=== PATIENT | female | born 1965 | race Caucasian/White ===

== ENCOUNTER 2018-01-30 10:09 | Day surgery (SDC) | payer MEDICAID, SELFPAY ==
[2018-01-30] VITALS (8 sets, daily range): BP systolic 109–160; BP diastolic 55–93; PULSE 65–107; RESP 14–16; TEMP 36.1–36.9; O2SAT 98–100; BMI 26.2
--- NOTE | 2018-01-30 10:14 | EKG12_ITS ---
Test Reason : PREOP Blood Pressure : / mmHG Vent. Rate : 071 BPM Atrial Rate : 071 BPM P-R Int : 112 ms QRS Dur : 086 ms QT Int : 390 ms P-R-T Axes : 063 041 049 degrees QTc Int : 423 ms Normal sinus rhythm Normal ECG When compared with ECG of 12-OCT-2015 05:25, No significant change was found Confirmed by ATMIR FRENCH, JUSTIN ([id number]), film editor supervisor MARIA ISABEL SHAFFER ([id number]) on 01/31/2018 2:11:31 PM Referred By: Gen Blue Confirmed By:JUSTIN GARNETT MD
[2018-01-30 10:28] LABS: Internal QC Validated? YES +Cl - CLEAR BKGD
[2018-01-30 10:32] LABS: Pregnancy, Urine Negative Negative
[2018-01-30] MEDS: Cefazolin 2 GM in 0.9% Normal Saline 100 ML IV (12:07)
--- NOTE | 2018-01-30 12:20 | GALL_PTH ---
PATIENT: ISSAC NEWELL LOC: [facility] – [place] U#:[id number] AGE/SX: 52/F ROOM: RE01/30/[address]: Dr. Gen Blue MD : 1965 BED: DIS: 01/30/2018 SPEC #: [id number] RECD: 01/30/18 14:18 STATUS: MILLI ARACELI #: [id number] MIN: 01/30/18 12:[address]: Gen Blue DEPT: SURGICAL PATHOLOGY RECD BY: Mitchel Dubois ENTERED: 01/31/18 08:26 SP TYPE: TAPAN MATTHEW DR: Dr. Adelfo Fortune MD Tissues: Gallbladder, NOS Procedures: Surgery Specimen Level III HEADER OPERATION: Laparoscopic cholecystectomy PRE-OP DIAGNOSIS: Gallbladder sludge TISSUE SUBMITTED: Gallbladder MICROSCOPIC DIAGNOSIS Gallbladder: Mild chronic cholecystitis and cholesterolosis. No stones are identified in the container or in the gallbladder. SJ:melissa 02/01/18 MICROSCOPIC DESCRIPTION Slides are reviewed. GROSS DESCRIPTION Received is one container labeled with the patient's name and designated gallbladder. The specimen consists of a gallbladder measuring 8 cm in length and up to 3.5 cm in diameter. The external surface is pink-garland, smooth and glistening for the most part. Focally it is granular, hemorrhagic and contains cautery artifact. The gallbladder contains green-yellow mucoid bile. No stones are identified in the container or in the gallbladder. The mucosa also shows several yellowish streaks consistent with cholesterolosis. The mucosa is bile-stained and without any mass lesions. The gallbladder wall measures up to 0.3 cm in thickness. Systems Applications [employer] Lead sections from the gallbladder and the cystic duct are submitted in one cassette. / SJ:melissa 01/31/18 TC:3 CPT: 65092
[2018-01-30] MEDS: Bupivacaine Mpf 0.5% 30 ML VIAL (12:40)
--- NOTE | 2018-01-30 12:48 | PCM.OPRPT ---
Problem List (1) Gallbladder sludge Status: Acute (2) Nausea Status: Acute Report of Operation Date of Procedure: 01/30/18 Pre-Operative Diagnosis: Gallbladder sludge. Nausea Post-Operative Diagnosis: Same Surgery/Procedure Performed:: Laparoscopic cholecystectomy Type of Anesthesia:: General Anesthesiologist: Marco Fairchild Specimen's removed: gb Description of Procedure: Patient was brought in the operating room. Placed in the supine position. Under excellent general endotracheal sedation the abdomen was sterilely prepped and draped in usual fashion. Was initially going to make an incision above the umbilicus and try to explore the area to see if there is a hernia however the patient was so significantly short wasted it would have crowded all of my trochars and I decided against doing this I injected local infraumbilically dissected down graft the fascia with Jack place a varies needle inside the abdomen and insufflated the abdomen to 15 torr. A 10/12 trocar was placed without difficulty. A subxiphoid #5 trocar was placed and then I palpated above the umbilical area I felt no defect here with the abdomen insufflated to 15 torr. Inferior to the #5 trocar placed another #5 trocar. Laterally a #5 trocar was placed. All these under direct visualization without injury to underlying structures fundus of the gallbladder was grasped and retracted in cephalad direction infundibulum was grasped and retracted laterally. I dissected out the cystic duct. Place hemoclips proximally and distally on the duct and ligated the duct. Identified the cystic artery placed hemoclips proximally distally on the artery and ligated the artery. I deliver the gallbladder from the gallbladder bed with use of electrocautery there was no spillage of bile. Placed a specimen specimen bag and delivered through the umbilical port without difficulty. Liver bed was very raw I spent a lot of time using electrocautery to achieve good hemostasis. I placed some Fish in the bed of the liver it remained nice and white and I saw no wisp of red coming through the white Fish. I inspected the abdominal wall from the inside I saw no signs of any hernia. Trochars removed under direct visualization good hemostasis was noted close the fascia the umbilical port with a [id number] stitch of 0 Vicryl skin incisions were closed with septicum stitches of 4-0 Monocryl Steri-Strips applied sterile dressings were applied and the patient tolerated the procedure well. - Admit VTE Documentation VTE Present on Admission: No VTE Mechan Device Prophylaxis: SCD's VTE Pharm Prophylaxis ordered?: No Reason prophylaxis not ordered:: Treatment Not Indicated
--- NOTE | 2018-01-30 12:51 | PCM.DC.GB ---
Discharge Diet: Light diet - advance as tolerated Discharge Activity: May Not Drive - for 2-3 days or while taking narcotic pain medications., - - Do not drive, work heavy equipment or sign legal documents for 24 hours. May shower in (days): 1 - with the bandage in place. Additional Activity Instructions:: Pain medication may cause nausea. You should typically eat light foods as you take your pain medications. Pain medication may also cause constipation. If this is a problem for you, please discuss with your doctor. Call your doctor if your incision/area has: Continuous Slow Oozing, Sudden Increased Bleeding, Increased Pain/ Swelling, Increased Redness, Foul Smelling Discharge Call your doctor if you observe: Fever of 101 or Higher Suture Line Care: Avoid Pulling/Pushing, Avoid Pinching/Bending Additional Dressing/Incision Instructions:: Leave operative bandaids on for 2 days. When you remove dressing, leave Steri-Strips on until your follow-up appointment, or until the Steri-Strips fall off on their own. Allergies/Adverse Reactions: Allergies aspirin Allergy (Verified 01/16/18 09:56) Anaphylaxis Sulfa (Sulfonamide Antibiotics) Allergy (Verified 01/16/18 09:56) Anaphylaxis DEXPAK Allergy (Uncoded 01/16/18 09:56) Hives Medications to take at Discharge Albuterol Aerosols [Ventolin Aerosols] 2.5 mg INHALATION Q4H PRN PRN 01/19/14 Albuterol Inhaler [Ventolin Hfa] 2 puff INHALATION Q4H PRN PRN 01/19/14 Fluticasone 220 Mcg [Flovent 220 Mcg] 2 puff INHALATION BID 01/19/14 Montelukast [Singulair] 10 mg PO DAILY 04/28/16 Budesonide Aerosol [Pulmicort Respules] 1 applicatio NASAL BID 08/10/16 Levocetirizine Dihydrochloride [Xyzal] 5 mg PO BID 01/18/18 Norethindrone-E.estradiol-Iron [Junel Fe 1 mg-20 Mcg Tablet] 1 each PO DAILY 01/18/18 Oxycodone HCl/Acetaminophen [Percocet 5/325] 1 - 2 tab PO Q4H PRN PRN 5 Days #30 tab 01/30/18 The following prescriptions were given: Oxycodone HCl/Acetaminophen [Percocet 5/325] 1 - 2 tab PO Q4H PRN PRN 5 Days #30 tab PRN Reason: Pain Primary Care Physician: Adelfo Fortune [Primary Care Provider] - Test Results: Test results from this visit will be discussed in further detail at your follow-up appointment, if applicable. Please Follow Up With: Gen Blue MD - Please call [phone] to schedule an appointment. When: 7 days after your surgery.
== END 2018-01-30 15:50 | disposition home or self-care (01) ==
LOC: SDC 10:10 → AC 10:11
PROVIDERS: Anesthesiology; Family Provider Family Medicine; PCP Family Medicine; Visit Provider Surgery
PROC: (CPT 47610; principal; 2018-01-30 12:00)
DX: K81.1 Chronic cholecystitis (principal); R11.0 Nausea; M19.90 Unspecified osteoarthritis, unspecified site; J45.909 Unspecified asthma, uncomplicated; Z79.51 Long term (current) use of inhaled steroids; Z79.899 Other long term (current) drug therapy
CPT/HCPCS: 00790; 47562; 81025; 88304; 93005; J7120; J2405

== ENCOUNTER → 2018-02-28 15:57 | Outpatient (CLI) | payer MEDICAID, SELFPAY ==
[2018-03-08 13:54] LABS: HPV HC, High Risk Negative (Negative)
== END ==
PROVIDERS: Visit Provider Obstetrics & Gynecology
DX: Z12.72 Encounter for screening for malignant neoplasm of vagina (principal)
CPT/HCPCS: 87624; 88175; G0145

== ENCOUNTER 2018-03-14 09:41 | Observation (INO) | payer MEDICAID, SELFPAY ==
[2018-03-08 16:11] LABS: Hematocrit 40.5 % (37-47); Hemoglobin 13.4 g/dl (12.0-15.0); Mean Corp Hgb Conc 33.1 g/gl (32-36); Mean Corpuscular Hgb 30.7 pg (27.0-32.0); Mean Corpuscular Volume 92.7 fL (81-99); Mean Platelet Vol. 10.3 fl (6.2-12.0); Platelet Count 304 K/mm3 (150-450); RBC Distribution Width CV 13.4 % (11.6-14.6); RBC Distribution Width SD 44.2 fl (35.1-43.9); Red Blood Count 4.37 M/mm3 (4.2-5.4); White Blood Count 7.1 K/mm3 (4.4-11.0)
[2018-03-08 16:15] LABS: Scan Indicated on CBC? Y/N NO
[2018-03-08 16:25] LABS: Prothrombin Time (Protime)PT. 13.5 SECONDS (11.7-14.9)
[2018-03-08 16:26] LABS: Partial Thromboplast Time 30.9 Seconds (24.1-36.2)
[2018-03-08 16:34] LABS: Pregnancy, Serum, hCG Quali. NEGATIVE Negative (0-9 Nonpreg)
[2018-03-14] VITALS (13 sets, daily range): BP systolic 103–131; BP diastolic 51–77; PULSE 65–98; RESP 16; TEMP 36.5–37.6; O2SAT 92–100; BMI 27.2
[2018-03-14 07:42] LABS: Internal QC Validated? YES +Cl - CLEAR BKGD; Pregnancy, Urine Negative Negative
--- NOTE | 2018-03-14 09:20 | HYST_PTH ---
PATIENT: ISSAC NEWELL LOC: [facility] U#:[id number] AGE/SX: 52/F [place] [facility] [place] RE[place]/14/[address]: Dr. Tyler Mccarty MD : 1965 BED: 1 DIS: 03/15/2018 SPEC #: [id number] RECD: 03/14/18 16:15 STATUS: MILLI RERafael #: [id number] MIN: 03/14/18 09:[address]: Tyler Mccarty DEPT: SURGICAL PATHOLOGY RECD BY: Daniel Tomas ENTERED: 03/15/18 11:23 SP TYPE: HYSTERECT OTHR DR: Dr. Adelfo Fortune MD Tissues: Uterus, NOS Procedures: Surgery Specimen Level V HEADER OPERATION: Hysterectomy, lap-assisted vaginal, BSO PRE-OP DIAGNOSIS: Intramural leiomyoma of uterus TISSUE SUBMITTED: Uterus, cervix and bilateral fallopian tubes and ovaries MICROSCOPIC DIAGNOSIS Uterus, cervix, bilateral fallopian tubes and ovaries, vaginal hysterectomy and bilateral salpingo-oophorectomy: Cervix - no pathologic diagnosis. Endometrium - secretory endometrium. Myometrium - intramural and subserosal leiomyomas (largest measuring 5 cm in greatest dimension). - Focal adenomyosis. See comment. Bilateral fallopian tubes - no pathologic diagnosis. Right ovary - no pathologic diagnosis. Left ovary - physiologic hemorrhagic corpus luteum cyst. Focal tubo-ovarian adhesions left fallopian tube and ovary. SJ:melissa 03/16/18 COMMENT One of the subserosal nodule filled with bloody material is consistent with adenomyosis. MICROSCOPIC DESCRIPTION Slides are reviewed. GROSS DESCRIPTION Received in fixative is one container labeled with the patient's name and designated uterus and bilateral fallopian tubes. The specimen consists of a hysterectomy specimen consisting of uterus with cervix and attached bilateral fallopian tubes and ovaries. The uterus with cervix weighs 210 gm and measures 10.5 x 8 x 9 cm. The serosal surface is garland, glistening. A few subserosal nodules are noted. The ectocervical mucosa is unremarkable. The external os is pin point in contour. The endocervical canal measures 3.5 cm in length and the endocervical mucosa is garland, glistening and unremarkable. The triangular endometrial cavity measures 6 cm in length and up to 2 cm in width. The endometrium does not show any mass lesion and it measures 0.1 cm in thickness. Sections of the uterine wall reveal multiple intramural and subserosal nodular masses. The largest mass measures 5 cm in greatest dimension. Sections of these masses reveal garland whorled cut surfaces without areas of hemorrhage, necrosis or cystic degeneration. The uninvolved uterine wall measures up to 3.5 cm in thickness. Sections of one of the smaller subserosal nodular masses reveal the nodule shows cystic cut surface filled with bloody material. The right fallopian tube measures 5 cm in length and 0.7 cm in diameter. The fimbrial end is identified. It is interrupted in the middle consistent with previous tubal occlusion. The fallopian tube in the middle shows a plastic ring consistent with previous tubal occlusion. The adjacent right ovary measures 2.5 x 1.5 x 0.5 cm. Sections reveal hemorrhagic cut surfaces. The left fallopian tube is similar appearance to right and measures 7 cm in length and up to 0.8 cm in diameter. The left ovary measures 3.5 x 2.5 x 1.5 cm. Focal tubo-ovarian adhesions are noted at the fimbrial end. Sections reveal a hemorrhagic corpus luteal cyst measuring 2 cm in greatest dimension. Container Shop Welder sections are submitted in 13 cassettes as follows: 1 - anterior cervix, 2 - posterior cervix, 3 & 4 - anterior uterine wall, 5 & 6 - posterior uterine wall, 7 - largest nodular mass, 8 & 9 - smaller intramural and subserosal nodular masses, 10 - smaller subserosal nodule with cystic change, 11 - right fallopian tube and ovary, 12 - left fallopian tube and ovary, 13 - more sections of left ovary. / MATT:melissa 03/15/18 TC:1 CPT: 34892
--- NOTE | 2018-03-14 09:50 | PCM.DC.VHY ---
Discharge Diet: No Restrictions Discharge Activity: Return to Normal Activity, May Not Drive, May not drive while taking narcotic pain medications., May Shower Return to work on:: 04/16/18 May shower in (days): 0 May resume sexual activity in: 6 weeks Call your doctor if your incision/area has: Sudden Increased Bleeding, Increased Pain/ Swelling, Increased Redness, Foul Smelling Discharge, Swelling at the incision site Call your doctor if you observe: Fever of 101 or Higher, Inability to urinate, Inability to have a bowel movement, Using more than one pad per hour, Shortness of breath, Chest pain, Calf discomfort, Uncontrolled pain Remove Dressing in (days):: 2 Cleanse incision/area with: Soap & Water Allergies/Adverse Reactions: Allergies aspirin Allergy (Verified 03/07/18 14:39) Anaphylaxis Sulfa (Sulfonamide Antibiotics) Allergy (Verified 03/07/18 14:39) Anaphylaxis DEXPAK Allergy (Uncoded 03/07/18 14:39) Hives Medications to take at Discharge Albuterol Aerosols [Ventolin Aerosols] 2.5 mg INHALATION Q4H PRN PRN 01/19/14 Albuterol Inhaler [Ventolin Hfa] 2 puff INHALATION Q4H PRN PRN 01/19/14 Fluticasone 220 Mcg [Flovent 220 Mcg] 2 puff INHALATION BID 01/19/14 Montelukast [Singulair] 10 mg PO DAILY 04/28/16 Budesonide Aerosol [Pulmicort Respules] 1 applicatio NASAL BID 08/10/16 Levocetirizine Dihydrochloride [Xyzal] 5 mg PO BID 01/18/18 Cholecalciferol (Vitamin D3) [Vitamin D3] 2,000 unit PO DAILY 03/07/18 Glucosam/Chondroit/C/Manganese [Cosamin Ds Capsule] 2 each PO DAILY 03/07/18 Multivitamin [Multiple Vitamins] 1 each PO DAILY 03/07/18 Hydrocodone Bitart/Apap 5-325 [[place] 5/325] 1 tab PO Q6H PRN PRN 7 Days #28 tab 03/14/18 The following prescriptions were given: Hydrocodone Bitart/Apap 5-325 [[place] 5/325] 1 tab PO Q6H PRN PRN 7 Days #28 tab PRN Reason: Severe Pain (-02/28) Primary Care Physician: Adelfo Fortune [Primary Care Provider] - Test Results: Test results from this visit will be discussed in further detail at your follow-up appointment, if applicable. Please Follow Up With: Tyler Mccarty MD When: one week Proposed Discharge Date: 03/15/18
--- NOTE | 2018-03-14 09:54 | OP.PCM_ITS ---
Problem List (1) Fibroid uterus Status: Chronic Qualifiers: Uterine leiomyoma location: intramural Qualified Code(s): D25.1 - Intramural leiomyoma of uterus Report of Operation Date of Procedure: 03/14/18 Pre-Operative Diagnosis: Fibroid uterus Surgery/Procedure Performed:: Laparoscopic Assisted Vaginal Hysterectomy, Bilateral Salpingooophorectomy Description of Surgical Findings:: Uterus with multiple fibroids largest posterior measuring about 6 cm. Normal appearing ovaries and fallopian tubes. Minor adhesions of bladder to anterior lower uterine segment and cervix. fire prevention chief: Janine Mena fire prevention chief: Carmen Collins Type of Anesthesia:: General Anesthesiologist: Angelo Blanton Special Medications: none Specimen's removed: Uterus, cervix, left and right ovaries and fallopian tubes Drains: whitney Estimated Blood Loss (mL): 200cc Fluids Replaced: 1100cc LR Description of Procedure: Annia was taken to the OR with IV running. She was given two grams of Cefotetan intravenously prior to the surgery for surgical prophylaxis. She had SCDs in place and operational from the preoperative area, through surgery and into recovery. General anesthesia was induced without complication. She was then prepped and draped in the dorsal lithotomy position. A whitney catheter was then placed. A Zumi uterine manipulator was placed. Attention was then directed to the abdomen. A 5mm vertical incision was made in the lower base of the umbilicus. The underlying subcutaneous tissue was dissected bluntly down to the level of the fascia using a Kellen clamp. The abdominal wall was then elevated and a Veress needle placed through the umbilical defect into the abdomen. The abdomen was then inflated to 15 Torr using CO2 gas. The Veress needle was removed and replaced with a 5mm trocar and sleeve. The trocar was removed and replaced with the laparoscope. Two 5mm laparoscope ports were placed one on the left and one on the right at the level of the umbilicus lateral to the inferior epigastric vessels. A thorough survey of the abdomen and pelvis was performed with findings as above. Attention was then directed to the left adnexa. The left infindibulopelvic ligament was identified, grasped with the Ligasure device cauterized and cut. The mesosalpinx was then serially dissected from the fimbriated end to the cornua of the uterus. The left round ligament was then cauterized and cut close to the attachment at the uterus. The round ligament was then dissected close to the uterus to the level of the cervix. The anterior and posterior leaves were bluntly, the uterine artery identified and cauterized and cut. A bladder flap was created. The paracervical tissue was then dissected close to cervix down to the level of the uterosacral ligament. In a similar fashion the right adnexa and uterine attachments were dissected. Attention was then directed to the vagina. The Zumi was removed and cervix grasped with two single toothed tenacula. The cervicovaginal epithelium was then injected superficially with a dilute Pitressin solution. Using the Bovie cautery the cervicovaginal epithelium was cut circumfrentailly. The vaginal mucosa was then pushed superiorly. The vesicovaginal peritoneum was then identified and entered sharply. The rectovaginal peritoneum was identified and entered sharply. A long weighted speculum was placed through the posterior defect. Cheryle clamps were used to grasp the uterosacral ligaments which were clamped, cut and suture ligated. These ties were helld for incorporation into the vaginal cuff angles. The remaining paracervical tissue was clamped cut and suture ligated. The specimen was then removed en bulk. The vagina was then closed in the midline from anterior to posterior. The angles were sutured with 0-Vicryl suture and the previously held uterosacral ties were incorporated into these ties. The vaginal cuff was then closed with a series of figure of eight sutures. All instruments were then removed from the vagina. Attention was redirected to the abdomen which was reinflated with CO2 gas. A pedicle sites were inspected for hemostasis. The laparoscopic ports were removed under direct visualization with the laparoscope. The skin incisions were closed with 4-0 Monocryl and injected with 0.5% Marcaine for anesthetic. Sponge, needle, and instrument counts were correct. She was reversed from anesthesia and taken to the recovery room in stable condition. Grafts/Implants Used: none - Complications none - Admit VTE Documentation VTE Present on Admission: No VTE Mechan Device Prophylaxis: SCD's VTE Pharm Prophylaxis ordered?: No
[2018-03-14] MEDS: Vasopressin 20 UNITS/ML Vial (10:50)
[2018-03-14] MEDS: Bupivacaine 0.5% PF 10 ML VIAL (11:30)
[2018-03-14] MEDS: Lactated Ringers 1,000 ML 125 ML IV ×2 (14:46→23:29)
[2018-03-14] MEDS: HYDROmorphone 1 MG/ML Syringe IV (14:46)
[2018-03-14] MEDS: Cefazolin 1 GM/50 ML BAG IV (17:09)
[2018-03-14] MEDS: HYDROcodone Bitartrate/Apap 5/325 Tablet PO (19:04)
[2018-03-14] MEDS: Ondansetron 4 MG/2 ML Vial IV (20:40)
[2018-03-15] MEDS: Acetaminophen 500 MG Tablet 1000 MG PO ×2 (00:30→08:26)
[2018-03-15] MEDS: Cefazolin 1 GM/50 ML BAG IV (01:42)
[2018-03-15 02:44] VITALS: BP 104/49; PULSE 93; RESP 16; TEMP 37.5; O2SAT 96
[2018-03-15 06:51] LABS: Hematocrit 35.6 % (37-47); Hemoglobin 11.7 g/dl (12.0-15.0); Mean Corp Hgb Conc 32.9 g/gl (32-36); Mean Corpuscular Hgb 30.6 pg (27.0-32.0); Mean Corpuscular Volume 93.2 fL (81-99); Mean Platelet Vol. 10.1 fl (6.2-12.0); Platelet Count 282 K/mm3 (150-450); RBC Distribution Width CV 13.7 % (11.6-14.6); RBC Distribution Width SD 45.3 fl (35.1-43.9); Red Blood Count 3.82 M/mm3 (4.2-5.4); White Blood Count 12.1 K/mm3 (4.4-11.0)
[2018-03-15 07:01] LABS: Scan Indicated on CBC? Y/N NO
[2018-03-15 07:20] VITALS: O2SAT 97
--- NOTE | 2018-03-15 07:46 | PCM.PN.OB ---
Subjective: Some anusea with vicodin. Tolerating some PO. Pain reasonably controlled with tylenol only. Objective: Afeb VSS hgb stable. Urine output adequate. - Physical Exam General: Alert, Oriented x3, Cooperative, No apparent distress Lungs: Clear to auscultation, Normal air movement Cardiovascular: Regular rate, Regular Rhythm Abdomen: Soft, Non Tender, Non-Distended, - - Incision dressings dry Extremities: No edema Neurological: Neuro grossly intact Psych/Mental Status: Normal Affect Comment: Very scant vaginal bleeding Vital Signs Temp Pulse Resp BP Pulse Ox 99.5 F H 93 16 104/49 L 96 03/15/18 02:44 03/15/18 02:44 03/15/18 02:44 03/15/18 02:44 03/15/18 02:44 Oxygen Delivery Method Room Air Weight: 148 lb 12.992 oz Body Mass Index (BMI) 27.2 Intake and Output for Last 24 Hours 03/13/18 03/14/18 03/15/18 23:59 23:59 23:59 Intake Total 2194 / 2194 1485 / 1485 Output Total 500 / 500 850 / 850 Balance 1694 / 1694 635 / 635 Laboratory Tests Past 24 Hrs 03/15/18 06:22 WBC 12.1 H RBC 3.82 L Hgb 11.7 L Hct 35.6 L MCV 93.2 MCH 30.6 MCHC 32.9 RDW 13.7 RDW Differential 45.3 H Plt Count 282 MPV 10.1 Medical Necessity - Tobacco Use Smoking Status: Never smoker Assessment/Plan All Active Problems (Last Reviewed 01/16/18 @ 09:56 by Gen Blue MD) Hx of cholecystectomy (Acute) Gallbladder sludge (Acute) History of (Acute) Hx of sinus surgery (Acute) Acid reflux (Acute) Nausea (Acute) Abdominal pain (Acute) SOB (shortness of breath) (Acute) Arthritis (Acute) Hx of eye surgery (Acute) HLD (hyperlipidemia) (Acute) Abnormal nuclear stress test (Acute) Angina pectoris (Acute) Sinus disease (Acute) Doing well on POD#1. Cleared for discharge home today. Home going instructions and warnings given.
--- NOTE | 2018-03-15 07:50 | DS.PCM_ITS ---
Discharge Date and Diagnosis Date of Admission: 03/14/18 Date of Discharge: 03/15/18 - Primary Discharge Diagnosis S/P LAVH/BSO - Secondary Discharge Diagnosis Chronic Problems (Last Reviewed 01/16/18 @ 09:56 by Gen Blue MD) Fibroid uterus (Chronic) Hives (Chronic) Seasonal allergies (Chronic) Asthma (Chronic) Hospital Course and Treatment Operations: - - LAVH/BSO Summary of Care Provided: The patient is a 52 year old F [admitted for LAVH/BSO. This was performed without complication. Post operative course unremarkable. Discharged home on POD#1.] - Physical Exam Vital Signs Temp Pulse Resp BP Pulse Ox 99.5 F H 93 16 104/49 L 96 03/15/18 02:44 03/15/18 02:44 03/15/18 02:44 03/15/18 02:44 03/15/18 02:44 Oxygen Delivery Method Room Air Weight: 148 lb 12.992 oz Body Mass Index (BMI) 27.2 Intake and Output for Last 24 Hours 03/13/18 03/14/18 03/15/18 23:59 23:59 23:59 Intake Total 2194 / 2194 1485 / 1485 Output Total 500 / 500 850 / 850 Balance 1694 / 1694 635 / 635 Laboratory Tests Past 24 Hrs 03/15/18 06:22 WBC 12.1 H RBC 3.82 L Hgb 11.7 L Hct 35.6 L MCV 93.2 MCH 30.6 MCHC 32.9 RDW 13.7 RDW Differential 45.3 H Plt Count 282 MPV 10.1 Discharge Diet: No Restrictions Discharge Activity: Return to Normal Activity, May Not Drive, May not drive while taking narcotic pain medications., May Shower Return to work on:: 04/16/18 May shower in (days): 0 May resume sexual activity in: 6 weeks Call your doctor if your incision/area has: Sudden Increased Bleeding, Increased Pain/ Swelling, Increased Redness, Foul Smelling Discharge, Swelling at the incision site Call your doctor if you observe: Fever of 101 or Higher, Inability to urinate, Inability to have a bowel movement, Using more than one pad per hour, Shortness of breath, Chest pain, Calf discomfort, Uncontrolled pain Remove Dressing in (days):: 2 Cleanse incision/area with: Soap & Water Home Medications: Medications to take at Discharge Albuterol Aerosols [Ventolin Aerosols] 2.5 mg INHALATION Q4H PRN PRN 01/19/14 Albuterol Inhaler [Ventolin Hfa] 2 puff INHALATION Q4H PRN PRN 01/19/14 Fluticasone 220 Mcg [Flovent 220 Mcg] 2 puff INHALATION BID 01/19/14 Montelukast [Singulair] 10 mg PO DAILY 04/28/16 Budesonide Aerosol [Pulmicort Respules] 1 applicatio NASAL BID 08/10/16 Levocetirizine Dihydrochloride [Xyzal] 5 mg PO BID 01/18/18 Cholecalciferol (Vitamin D3) [Vitamin D3] 2,000 unit PO DAILY 03/07/18 Glucosam/Chondroit/C/Manganese [Cosamin Ds Capsule] 2 each PO DAILY 03/07/18 Multivitamin [Multiple Vitamins] 1 each PO DAILY 03/07/18 Hydrocodone Bitart/Apap 5-325 [[place] 5/325] 1 tab PO Q6H PRN PRN 7 Days #28 tab 03/14/18 Following Prescrptions Were Given to Patient: Hydrocodone Bitart/Apap 5-325 [[place] 5/325] 1 tab PO Q6H PRN PRN 7 Days #28 tab PRN Reason: Severe Pain (-02/28) Primary Care Physician: Adelfo Fortune [Primary Care Provider] - Please Follow Up With: Tyler Mccarty MD When: one week Disposition: Home Minutes spent on discharge:: 15 Patient Condition:: Good Medical Necessity - Tobacco Use Smoking Status: Never smoker Meaningful Use Info Meaningful Use Diagnoses (Choose all that apply): None applicable
[2018-03-15] MEDS: Ondansetron 4 MG/2 ML Vial IV (08:26)
[2018-03-15] MEDS: 0.9% NaCl Peripheral Flush Adult/Peds IV (08:28)
[2018-03-15 10:30] VITALS: BP 96/43; PULSE 63; RESP 16; TEMP 36.7; O2SAT 100
== END 2018-03-15 10:59 | disposition home or self-care (01) ==
LOC: MS2 11:28
PROVIDERS: Admitting Provider Obstetrics & Gynecology; Family Provider Family Medicine; PCP Family Medicine; Referring Provider Obstetrics & Gynecology; Visit Provider Obstetrics & Gynecology
PROC: 0UT9FZZ Resection of Uterus, Via Natural or Artificial Opening With Percutaneous Endoscopic Assistance (ICD-10-PCS; CPT 58552; principal; 2018-03-14 08:55)
DX: D25.1 Intramural leiomyoma of uterus (principal); D25.2 Subserosal leiomyoma of uterus; K21.9 Gastro-esophageal reflux disease without esophagitis; J45.909 Unspecified asthma, uncomplicated; Z79.899 Other long term (current) drug therapy; L50.8 Other urticaria; E78.5 Hyperlipidemia, unspecified; M19.90 Unspecified osteoarthritis, unspecified site
CPT/HCPCS: 00940; 58552; 36415; 81025; 84703; 85027; 85610; 85730; 86850; 86900; 88307; 96361; 96365; 96366; 96375; 96376; 99218; J7120; A4216; G0378; G0379; J2405

== ENCOUNTER 2018-08-31 09:30 | Emergency (ER) | payer MEDICAID, SELFPAY ==
[2018-08-31 09:32] VITALS: BP 132/68; PULSE 75; RESP 16; TEMP 36.9; O2SAT 100; BMI 27.5
--- NOTE | 2018-08-31 09:43 | ED.VIS.GEN ---
History of Present Illness Chief Complaint: Rash Informant: Patient Onset: Yesterday Context: Gradual Onset Current Severity: Mild Maximum Severity: Moderate Narrative: 53-year-old female with a history of allergies presents with hives since last night. Arms, legs, and face. They are in the usual locations. She states that this used to happen quite frequently was better after she had a hysterectomy. She is allergic to multiple different foods. She ate Mart cheese yesterday and she thinks that is what caused this. She denies any trouble swallowing or breathing. She has never had to use an EpiPen in the past. She otherwise feels well. She did not take any medication yet. Past Medical History - Allergies and Home Meds Allergies/Adverse Reactions: Allergies aspirin Allergy (Verified 08/31/18 09:30) Anaphylaxis Sulfa (Sulfonamide Antibiotics) Allergy (Verified 08/31/18 09:30) Anaphylaxis DEXPAK Allergy (Uncoded 08/31/18 09:30) Hives Primary Care Physician: Adelfo Fortune [Primary Care Provider] - Prior records reviewed: Yes Past Medical History: - - Severe allergies to multiple environmental exposures. Surgical History: - Lives: With Family Smoking Status: Never smoker - Family History Maternal Family History: Family History (Last Reviewed 01/16/18 @ 09:56 by Gen Blue MD) Mother Heart disease Hypertension Cancer Brother Diabetes Family History: Reports: - - heart disease in grandfather Paternal Family History: Family History (Last Reviewed 01/16/18 @ 09:56 by Gen Blue MD) Mother Heart disease Hypertension Cancer Brother Diabetes Family History: Reports: No pertinent history Sibling Family History: Family History (Last Reviewed 01/16/18 @ 09:56 by Gen Blue MD) Mother Heart disease Hypertension Cancer Brother Diabetes Family History: Reports: - - brain aneurysm Review of Systems General: Denies: Chills, Fever, Sweats Eyes: Denies: Visual changes - bilaterally, Diplopia ENT: Denies: Rhinorrhea, Sore throat Cardiovascular: Denies: Chest pain, Palpitations Respiratory: Denies: Dyspnea, Cough, Dyspnea on exertion Gastrointestinal: Denies: Abdominal pain, Nausea, Vomiting, Diarrhea, Melena, Hematochezia Genitourinary: Denies: Dysuria, Hematuria, Frequency Musculoskeletal: Denies: Back pain, Extremity Pain Skin: Denies: Rash, Wounds Neurological: Denies: Headache, Weakness, Numbness Physical Exam Vital Signs/Narrative: Vital Signs Temp Pulse Resp BP Pulse Ox 08/31/18 09:32 98.5 F 75 16 132/68 H 100 General: Well nourished, Well developed, No Acute Distress Head: Normocephalic, Atraumatic Eyes: Perrl, EOMI ENT: Moist mucous membranes, No rhinorrhea Neck: Supple, Nontender Cardiovascular: Regular rate, Regular rhythm, No murmurs Respiratory: No distress, CTA bilaterally, Chest nontender Abdomen: Soft, Nontender, Nondistended, Normal bowel sounds Back: Nontender, Normal Inspection Extremities: Nontender, No edema Skin: Normal color, Rash - Scattered urticarial rash on extremities and abdominal wall Neurological: Alert, Oriented x3, Cranial nerves II-XII grossly intact, Normal Strength, Normal Sensation Psychological: Normal affect, Normal Mood Diagnostic/Tx/Re-eval - Medical Decision Making She looks well overall. Uvula looks normal. No lip swelling. Mild hives. I will treat her with Benadryl and prednisone. She is scheduled for allergy testing next week. She will return here if worse. ED Disposition - Plan for ED Patient: Diagnosis: Urticarial rash Instructions: ED Urticaria Prescriptions: Prednisone [Deltasone] 40 mg PO DAILY #10 tablet Referrals: Adelfo Fortune [Primary Care Provider] -
[2018-08-31] MEDS: predniSONE 20 MG Tablet 60 MG PO (09:58)
[2018-08-31] MEDS: DiphenhydrAMINE 25 MG Capsule PO (09:58)
[2018-08-31 09:59] VITALS: BP 112/65; PULSE 69; RESP 18
== END 2018-08-31 10:21 | disposition home or self-care (01) ==
LOC: ED 10:20
PROVIDERS: Emergency Provider Emergency Medicine; Family Provider Family Medicine; PCP Family Medicine
DX: L50.9 Urticaria, unspecified (principal); Z88.6 Allergy status to analgesic agent; Z90.710 Acquired absence of both cervix and uterus
CPT/HCPCS: 99283

== ENCOUNTER → 2018-09-14 15:02 | Outpatient (CLI) | payer MEDICAID, SELFPAY ==
[2018-08-31 09:32] VITALS: BMI 27.5
--- NOTE | 2018-09-14 15:05 | BI_ITS ---
MAMMOGRAPHY - BILATERAL SCREENING REASON FOR EXAM: Female, 53 years old. Routine annual screening examination. PERTINENT HISTORY: Non-contributory. TECHNIQUE: Digital bilateral breast jose (3D mammographic acquisition) in the CC and MLO projections. 2-D mediolateral oblique (MLO) and craniocaudad (CC) views of both breasts were obtained. CAD: Full Field Digital Mammography with Computer Added Detection was performed. COMPARISON: Comparison is made with prior ocular examination dated October 22, 2014. FINDINGS: Breast Composition: There are scattered areas of fibroglandular density. There are no dominant masses or suspicious calcifications. Stable small bilateral axillary lymph nodes. No other significant abnormalities are identified. There has been no significant change since the prior study. BI/SCREENING MAMM (CAD), BILAT IMPRESSION: Stable bilateral screening mammogram. Yearly follow-up mammogram recommended. (A) ASSESSMENT CATEGORY: BIRADS Category 2: Benign. A letter regarding these results will be sent to the patient by the facility within 30 days. Approximately 10% of breast cancers are not detected by mammography. A normal mammogram should not delay biopsy of a clinically suspicious abnormality. [id number] Electronically Signed: Vick Graves, at 10:59 EDT , Service support ,
== END ==
PROVIDERS: Family Provider Family Medicine; PCP Family Medicine; Referring Provider Obstetrics & Gynecology; Visit Provider Obstetrics & Gynecology
DX: Z12.31 Encounter for screening mammogram for malignant neoplasm of breast (principal)
CPT/HCPCS: 77063; 77067

== ENCOUNTER → 2018-12-21 09:40 | Outpatient (CLI) | payer OTHER, SELFPAY ==
[2018-12-21 12:34] LABS: Anion Gap 11 (5-15); BUN 15 mg/dL (7-18); BUN/Creat Ratio 15.7 RATIO (10-20); Calcium,Total 9.4 mg/dL (8.5-10.1); Chloride 109 mmol/L (98-107); Cholesterol 287 mg/dL (200); Creatinine, Serum 0.96 mg/dL (0.55-1.02); EST Glomerular Filtration Rate 65 mL/min (>60); Est Glom Filt Rate - Afr Amer 78 mL/min (>60); Glucose 94 mg/dL (74-106); High Density Lipoprotein 56 mg/dL; Potassium 4.2 mmol/L (3.5-5.1); Sodium Level 144 mmol/L (136-145); Triglycerides 218 mg/dL; Very Low Density Lipoprotein 44 mg/dL (5-40)
[2018-12-21 12:48] LABS: Vitamin D,25 Hydroxy 35.4 ng/mL (29.95-100.01)
== END ==
PROVIDERS: Family Provider Family Medicine; PCP Family Medicine; Referring Provider Family Medicine; Visit Provider Family Medicine
DX: Z00.00 Encounter for general adult medical examination without abnormal findings (principal)
CPT/HCPCS: 36415; 80048; 80061; 82306

== ENCOUNTER → 2019-01-10 14:48 | Outpatient (CLI) | payer OTHER, SELFPAY ==
--- NOTE | 2019-01-10 14:53 | BD_ITS ---
STUDY: DUAL ENERGY X-RAY ABSORPTIOMETRY / DXA REASON FOR EXAM: Female, 53 years old. The patient is postmenopausal. Loss of height. TECHNIQUE: Bone Mineral Density (BMD) measurements of lumbar spine and bilateral hips were obtained. COMPARISON: None. FINDINGS: Lumbar Spine (L1-L4): g/cm2 (1.249) / T-score (0.7) / Z-score (1.5) Findings are suggestive of normal bone density with a low fracture risk. Left Femur Total: g/cm2 (1.092) / T-score (0.7) / Z-score (1.3) Left Femoral Neck: g/cm2 (1.00 to) / T-score (-0.3) / Z-score (0.7) Right Femur Total: g/cm2 (1.060) / T-score (0.4) / Z-score (1.0) Right Femoral Neck: g/cm2 (0.970) / T-score (-0.5) / Z-score (0.5) BD/Dexa Bone Density Study IMPRESSION: The patient is considered normal as outlined below according to World Carrillo Organization (WHO) criteria with a low fracture risk. Reference Information: The T-score is the number of standard deviations above or below the standard which is normal for young adults at their peak bone mineral density. The World Health Organization (WHO) interprets the T-scores as follows: Above -1 Normal bone density Between -1 and -2.5 Osteopenia Equal to / or below -2.5 Osteoporosis As a practical clinical guideline, osteopenia may be graded as follows: Mild -1 through -1.5 Moderate -1.6 through -2.0 Severe -2.1 through -2.4 The Z-score is the number of standard deviations above or below age-matched controls. A Z-score of less than -1.5 would be considered abnormal. References: 1. NIH Osteoporosis and Related Bone Diseases http://www.osteo.org 2. International Society for Clinical Densitometry http://www.iscd.org 3. National Osteoporosis Foundation http://www.nof.org Electronically Signed: Vick Graves, at 11:06 EDT , Service support ,
== END ==
PROVIDERS: Family Provider Family Medicine; PCP Family Medicine; Referring Provider Family Medicine; Visit Provider Family Medicine
DX: Z78.0 Asymptomatic menopausal state (principal)
CPT/HCPCS: 77080

== ENCOUNTER → 2019-05-29 15:31 | Outpatient (CLI) | payer OTHER, SELFPAY ==
--- NOTE | 2019-05-29 15:36 | RAD_ITS ---
STUDY: X-RAY - RIGHT KNEE REASON FOR EXAM: Female, 53 years old. right knee pain since before [place], tenderness TECHNIQUE: 4 view(s) of the knee. COMPARISON: None. FINDINGS: Normal visualized distal femur. Normal visualized proximal tibia and fibula. Normal proximal tibiofibular articulation. Normal medial femorotibial compartment. Normal lateral femorotibial compartment. Normal patellofemoral articulation. The soft tissue structures are unremarkable. RAD/Knee 4 or More Views IMPRESSION: Normal x-ray examination of the knee. Electronically Signed: Jaclyn Azul MD at 16:15 EST , Service support ,
== END ==
PROVIDERS: Family Provider Family Medicine; PCP Family Medicine; Referring Provider Family Medicine; Visit Provider Family Medicine
DX: S89.90XA Unspecified injury of unspecified lower leg, initial encounter (principal)
CPT/HCPCS: 73564

== ENCOUNTER → 2019-07-11 16:06 | Outpatient (CLI) | payer OTHER, SELFPAY ==
--- NOTE | 2019-07-11 16:16 | MRI_ITS ---
STUDY: MRI RIGHT SHOULDER REASON FOR EXAM: Female, 54 years old. constant sharp R shoulder pain with use, no injury TECHNIQUE: Standardized fat and water weighted pulse sequences were obtained in all 3 orthogonal planes. COMPARISON: None. FINDINGS: Normal supraspinatus tendon. Normal infraspinatus tendon. Normal subscapularis tendon. Normal teres minor tendon. Normal supraspinatus muscle. Normal infraspinatus muscle. Normal subscapularis muscle. Normal teres minor muscle. Normal glenohumeral articulation. Normal humeral head and visualized proximal humerus. Normal biceps labral complex. Normal intracapsular long biceps tendon. Normal labrum. Normal capsulo- ligamentous complex. Normal rotator interval. No marrow edema is present. No glenohumeral joint effusion. Normal acromioclavicular articulation. There is a Type II morphology (curved), with a neutral orientation. There is no subacromial-subdeltoid bursal fluid. Normal visualized coracohumeral and coracoacromial ligaments. Normal quadrilateral space. Normal axillary space. Normal deltoid muscle. Normal trapezius muscle. MRI/Upper Ext Joint Only(Routine) IMPRESSION: Negative MRI of the right shoulder. Electronically Signed: Emanuel Davis MD at 19:17 EST , Service support ,
== END ==
PROVIDERS: Family Provider Family Medicine; PCP Family Medicine; Referring Provider Physician Assistant; Visit Provider Physician Assistant
DX: M25.511 Pain in right shoulder (principal)
CPT/HCPCS: 73221

== ENCOUNTER → 2019-11-08 14:22 | Outpatient (CLI) | payer OTHER, SELFPAY ==
[2019-07-22 15:51] VITALS: BMI 27.5
[2019-11-08 18:07] LABS: Absolute Lymphocyte Count 1.45 X10^3/uL (0.83-4.51); Absolute Neutrophil Count 4.3 X10^3/uL (2.0-7.7); Basophil# 0.04 X10^3/uL; Basophil% 0.6 % (0-1); Eosinophil# 0.24 X10^3/uL; Eosinophils% 3.6 % (0-5); Hematocrit 41.4 % (37-47); Hemoglobin 13.3 g/dL (12.0-15.0); Lymphocyte # 1.45 X10^3/ul (4.0); Lymphocyte % 21.7 % (19-41); Mean Corp Hgb Conc 32.1 g/dL (32-36); Mean Corpuscular Hgb 30.5 pg (27.0-32.0); Mean Platelet Vol. 10.5 fl (6.2-12.0); NRBC Flagged by Analyzer 0 % (0-5); Neutrophil # 4.34 X10^3/uL (2.7-7.7); Neutrophil % 64.8 % (47-70); Platelet Count 304 K/mm3 (150-450); RBC Distribution Width CV 12.9 % (11.6-14.6); RBC Distribution Width SD 44.7 fl (35.1-43.9); Red Blood Count 4.36 M/mm3 (4.2-5.4); White Blood Count 6.7 K/mm3 (4.4-11.0)
[2019-11-08 18:25] LABS: D-Dimer Quantitative (DVT/PE) 0.42 FEU/ug/m (0.27-0.49)
[2019-11-08 18:37] LABS: Anion Gap 9 (5-15); BUN 12 mg/dL (7-18); BUN/Creat Ratio 12.1 RATIO (10-20); Calcium,Total 9.8 mg/dL (8.5-10.1); Chloride 103 mmol/L (98-107); Cholesterol 261 mg/dL (200); Creatinine, Serum 0.99 mg/dL (0.55-1.02); EST Glomerular Filtration Rate 62 mL/min (>60); Est Glom Filt Rate - Afr Amer 75 mL/min (>60); Glucose 94 mg/dL (74-106); High Density Lipoprotein 61 mg/dL; Potassium 4.3 mmol/L (3.5-5.1); Sodium Level 139 mmol/L (136-145); Triglycerides 186 mg/dL; Very Low Density Lipoprotein 37 mg/dL (5-40)
== END ==
PROVIDERS: PCP Family Medicine; Visit Provider Family Medicine
DX: R07.9 Chest pain, unspecified (principal)
CPT/HCPCS: 36415; 80048; 80061; 84484; 85025; 85379

== ENCOUNTER → 2019-12-23 09:19 | Outpatient (CLI) | payer OTHER, SELFPAY ==
[2019-07-22 15:51] VITALS: BMI 27.5
--- NOTE | 2019-12-23 09:21 | STE_ITS ---
Reason For Study: CHEST PAIN Stress Results Protocol: Deven Protocol Maximum Predicted HR: 165 bpm Target HR: 140 bpm % Maximum Predicted HR: 88 % DurationHeart Rate Stage (mm:ss) (bpm) BP BASELINE 67 118/72 STAGE 1 3:00 106 122/74 STAGE 2 3:00 123 134/70 STAGE 3 3:00 146 162/80 RECOVERY 81 112/80 Stress Duration: 9:00 mm:ss Maximum Stress HR: 146 bpm Baseline Echocardiogram Findings Stress Echo Wall motion Data Resting WM Intermediate WM Stress WM Interpretation Summary Exercise stress echo. 54-year-old lady with a history of hypercholesterolemia and family history. Stress EKG. Resting EKG demonstrates normal sinus rhythm with a rate of 67 bpm normal intervals are noted resting blood pressure is 118/72 mmHg. The patient exercised according to regular Deven protocol for a total duration of 9 minutes. The maximum heart rate attained was 151 bpm which was 91% of maximum predicted heart rate the maximum workload was 10.4 metabolic equivalents. At rest there were no ST or T wave changes noted suggest ischemia at peak exercise upsloping ST changes were noted of approximately 1 mm. The above did not meet the criteria for ischemia. No clinical angina was noted the test was terminated due to attainment of target heart rate. The peak blood pressure was 162/80 mmHg with a rate-pressure product of 23,650. The blood pressure response to exercise was normal. Stress echocardiogram. Resting echocardiogram demonstrated an ejection fraction of approximately 60% increasing to a peak of approximately 75%. There was thickening of all lacey and reduction of the ventricular cavity size. No wall motion abnormalities were noted to suggest ischemia. Conclusion: Normal stress echocardiographic images at a high workload. Excellent functional capacity. No arrhythmias noted. Ordering Physician: Reji Hurd Referring Physician: Reji Hurd Performed By: Mariama Toth, RDCS, RVT
== END ==
PROVIDERS: PCP Family Medicine; Referring Provider Family Medicine; Visit Provider Family Medicine
DX: R07.9 Chest pain, unspecified (principal)
CPT/HCPCS: 93017; 93350

== ENCOUNTER → 2020-02-21 11:55 | Outpatient (CLI) | payer OTHER, SELFPAY ==
[2019-07-22 15:51] VITALS: BMI 27.5
--- NOTE | 2020-02-21 11:57 | RAD_ITS ---
STUDY: X-RAY CHEST REASON FOR EXAM: Female, 54 years old. DYSPNEA, ASTHMA EXACERBATION TECHNIQUE: PA and lateral views of the chest. COMPARISON: 10/09/2015 FINDINGS: The lungs are clear and expanded. There is no demonstrated pleural abnormality. Normal size heart. Normal mediastinum and brittni. Normal visualized pulmonary arteries. Normal visualized aortic arch and descending thoracic aorta. Normal visualized thoracic spine. Normal visualized ribs, clavicles, and shoulders. There is no demonstrated abnormality of the visualized soft tissue structures of the upper abdomen. RAD/Chest PA and Lateral IMPRESSION: No acute cardiopulmonary process. Electronically Signed: Herberth Wolf MD ([place]) at 12:07 EDT , Service support ,
== END ==
PROVIDERS: PCP Family Medicine; Referring Provider Family Medicine; Visit Provider Family Medicine
DX: J45.901 Unspecified asthma with (acute) exacerbation (principal)
CPT/HCPCS: 71046; 87635; U0003

== ENCOUNTER → 2020-03-16 15:03 | Outpatient (CLI) | payer OTHER, SELFPAY ==
[2019-07-22 15:51] VITALS: BMI 27.5
[2020-03-16 18:08] LABS: Absolute Lymphocyte Count 1.35 X10^3/uL (0.83-4.51); Basophil# 0.03 X10^3/uL; Basophil% 0.5 % (0-1); Eosinophil# 0.06 X10^3/uL; Hematocrit 38.4 % (37-47); Hemoglobin 12.7 g/dL (12.0-15.0); Lymphocyte # 1.35 X10^3/ul (4.0); Lymphocyte % 22.2 % (19-41); Mean Corp Hgb Conc 33.1 g/dL (32-36); Mean Corpuscular Hgb 30.8 pg (27.0-32.0); Mean Platelet Vol. 10.4 fl (6.2-12.0); Monocyte# 0.64 X10^3/uL; Monocyte% 10.5 % (0-10); NRBC Flagged by Analyzer 0 % (0-5); Neutrophil # 3.99 X10^3/uL (2.7-7.7); Neutrophil % 65.5 % (47-70); Platelet Count 369 K/mm3 (150-450); RBC Distribution Width CV 13.2 % (11.6-14.6); RBC Distribution Width SD 44.8 fl (35.1-43.9); Red Blood Count 4.13 M/mm3 (4.2-5.4); White Blood Count 6.1 K/mm3 (4.4-11.0)
[2020-03-16 18:41] LABS: Anion Gap 8 (5-15); BUN 17 mg/dL (7-18); Calcium,Total 9.9 mg/dL (8.5-10.1); Chloride 107 mmol/L (98-107); Creatinine, Serum 1.06 mg/dL (0.55-1.02); EST Glomerular Filtration Rate 57 mL/min (>60); Est Glom Filt Rate - Afr Amer 69 mL/min (>60); Glucose 93 mg/dL (74-106); Sodium Level 141 mmol/L (136-145); Thyroid Stim Hormone (TSH) 1.18 uIU/mL (0.358-3.74)
== END ==
PROVIDERS: PCP Family Medicine; Visit Provider Family Medicine
DX: U07.1 COVID-19 (principal); R53.83 Other fatigue
CPT/HCPCS: 36415; 80048; 84443; 85025

== ENCOUNTER 2020-08-12 07:02 | Emergency (ER) | payer MEDICAID, SELFPAY ==
[2019-07-22 15:51] VITALS: BMI 27.5
[2020-08-12 07:03] VITALS: BP 99/62; PULSE 105; RESP 18; TEMP 37.9; O2SAT 100; BMI 31.1
--- NOTE | 2020-08-12 07:23 | ED.DCSUM_ITS ---
History of Present Illness Chief Complaint: General Illness Informant: Patient Onset: Yesterday Context: Sudden Onset Timing: Continuous Narrative: Patient is a 55-year-old female with history of asthma presenting with myalgias and fever. Patient presented via EMS. Patient had her first met during a Covid vaccine yesterday at 115. Starting around 930 or 10 PM she developed myalgias, fever, nausea and vomiting. She states she has been able to keep any medicine down. She could get rid of the body aches which is why she came to the emergency room. Patient was given Zofran and a liter of fluid in route via EMS. Patient states she was feeling fine before last night. She denies any sick contacts. She denies any bowel symptoms. Patient states that she has been peeing every time she vomits but denies any other urinary symptoms. She is not sure if this is a reaction to her Covid vaccine or something else. Denies any chest pain, shortness of breath or wheezing. No other complaints at this time. Past Medical History - Allergies and Home Meds Allergies/Adverse Reactions: Allergies aspirin Allergy (Verified 08/12/20 07:06) Anaphylaxis Sulfa (Sulfonamide Antibiotics) Allergy (Verified 08/12/20 07:06) Anaphylaxis DEXPAK Allergy (Uncoded 08/12/20 07:06) Hives Primary Care Physician: Reji Hurd MD [Primary Care Provider] - Past Medical History: - - Asthma Surgical History: - Lives: With Family Smoking Status: Never smoker - Family History Maternal Family History: Family History (Last Reviewed 01/16/18 @ 09:[address] Gen Blue MD) Mother Heart disease Hypertension Cancer Brother Diabetes Family History: Reports: - - heart disease in grandfather Paternal Family History: Family History (Last Reviewed 01/16/18 @ 09:[address] Gen Blue MD) Mother Heart disease Hypertension Cancer Brother Diabetes Family History: Reports: No pertinent history Sibling Family History: Family History (Last Reviewed 01/16/18 @ 09:[address] Gen Blue MD) Mother Heart disease Hypertension Cancer Brother Diabetes Family History: Reports: - - brain aneurysm Review of Systems General: Reports: Chills, Fever, Malaise. Denies: Sweats Eyes: Denies: Visual changes - bilaterally, Diplopia ENT: Denies: Rhinorrhea, Sore throat Cardiovascular: Denies: Chest pain, Palpitations Respiratory: Denies: Dyspnea, Cough, Dyspnea on exertion Gastrointestinal: Reports: Nausea, Vomiting. Denies: Abdominal pain, Diarrhea, Melena, Hematochezia Genitourinary: Denies: Dysuria, Hematuria, Frequency Musculoskeletal: Denies: Back pain, Extremity Pain Skin: Denies: Rash, Wounds Neurological: Denies: Headache, Weakness, Numbness Physical Exam Vital Signs/Narrative: Vital Signs Temp Pulse Resp BP Pulse Ox 08/12/20 07:03 100.2 F H 105 H 18 99/62 100 Inital Vital Signs reviewed: Yes General: Well nourished, Well developed, No Acute Distress Head: Normocephalic, Atraumatic Eyes: Perrl, EOMI ENT: Moist mucous membranes, No rhinorrhea, TM's clear Neck: Supple, Nontender, No lymphadenopathy, No JVD Cardiovascular: Regular rate, Regular rhythm, No murmurs Respiratory: No distress, CTA bilaterally, Chest nontender Abdomen: Soft, Nontender, Nondistended, Normal bowel sounds. Negative for: Guarding, Rebound tenderness Back: Nontender, Normal Inspection Extremities: Nontender, No edema Skin: Normal color, No rash Neurological: Alert, Oriented x3, Cranial nerves II-XII grossly intact, Normal Strength, Normal Sensation Psychological: Normal affect, Normal Mood Diagnostic/Tx/Re-eval Laboratory Data 08/12/20 08/12/20 08/12/20 07:40 07:40 08:45 WBC 10.8 RBC 4.05 L Hgb 12.2 Hct 37.4 MCV 92.3 MCH 30.1 MCHC 32.6 RDW Std Deviation 44.4 H RDW Coeff of Magi 13.1 Plt Count 220 MPV 10.2 Immature Gran % (Auto) 0.600 Neut % (Auto) 91.1 H Lymph % (Auto) 3.3 L Buchanan % (Auto) 4.7 Eos % (Auto) 0.1 Baso % (Auto) 0.2 Absolute Neuts (auto) 9.8 H Absolute Lymphs (auto) 0.35 L Nucleated RBC % 0 Differential Comment COMMENT Sodium 138 Potassium 3.6 Chloride 108 H Carbon Dioxide 23.0 Anion Gap 7 BUN 12 Creatinine 1.03 H Estim Creat Clear Calc 48.24 Est GFR (MDRD) Af Amer 71 Est GFR (MDRD) Non-Af 59 L BUN/Creatinine Ratio 11.7 Glucose 121 H Calcium 8.6 Total Bilirubin 0.50 AST 35 ALT 42 Alkaline Phosphatase 110 Total Protein 7.4 Albumin 3.7 Globulin 3.7 Albumin/Globulin Ratio 1.0 Lipase 83 Urine Color Yellow Urine Clarity Clear Urine pH 8.0 Ur Specific [place] 1.010 Urine Protein Negative Urine Glucose (UA) Normal Urine Ketones Negative Urine Occult Blood 10 H Urine Nitrite Negative Urine Bilirubin Negative Urine Urobilinogen Normal Ur Leukocyte Esterase Negative - Medical Decision Making Evaluate for nausea, vomiting and myalgias. She received her first Covid vaccine yesterday. She cannot keep any fluids down is concerned she is dehydrated. Patient is febrile on arrival. She did receive Zofran and a liter of IV fluids in route via EMS. Her symptoms have started to improve as far as the GI symptoms. Her abdominal exam is pretty benign. She does not have any focal findings. Patient is given oral Tylenol with improvement of her fever and myalgias. On reevaluation she states she feels much better. Rapid Covid is negative and patient does not have any acute abnormalities on her lab work. Likely this is just an immune response to the Covid vaccine. Patient does comment that she did have Covid last year. Patient is discharged home with a prescription for Zofran instructions to take Tylenol as needed for myalgias and fever. Patient is counseled on signs and symptoms requiring return to the emergency room. Patient verbalizes agreement and understand this plan. Patient discharged home in stable and improved condition. ED Disposition - Plan for ED Patient: Disposition: Home or Assisted Living Diagnosis: Myalgia after COVID-19 vaccination, Nausea and vomiting Instructions: ED Myalgias Prescriptions: Ondansetron [Zofran Odt] 4 mg PO Q8H PRN PRN #10 tablet PRN Reason: Nausea Transmission Status: Pending to [id number] Referrals: Reji Hurd MD [Primary Care Provider] - Additional Instructions: Your work-up here today does not show any signs of an acute infection. Likely this is an normal reaction to your Covid vaccine. Drink plenty of fluids and take Zofran as needed for nausea. Continue take Tylenol as needed for fever and body aches.
[2020-08-12] MEDS: Acetaminophen 500 MG Tablet 1000 MG PO (07:35)
[2020-08-12 07:53] LABS: Absolute Lymphocyte Count 0.35 X10^3/uL (0.83-4.51); Absolute Neutrophil Count 9.8 X10^3/uL (2.0-7.7); Basophil# 0.02 X10^3/uL; Basophil% 0.2 % (0-1); Eosinophil# 0.01 X10^3/uL; Eosinophils% 0.1 % (0-5); Hematocrit 37.4 % (37-47); Hemoglobin 12.2 g/dL (12.0-15.0); Lymphocyte # 0.35 X10^3/ul (4.0); Lymphocyte % 3.3 % (19-41); Mean Corp Hgb Conc 32.6 g/dL (32-36); Mean Corpuscular Hgb 30.1 pg (27.0-32.0); Mean Corpuscular Volume 92.3 fL (81-99); Mean Platelet Vol. 10.2 fl (6.2-12.0); Monocyte# 0.51 X10^3/uL; Monocyte% 4.7 % (0-10); NRBC Flagged by Analyzer 0 % (0-5); Neutrophil % 91.1 % (47-70); POSITIVE DIFFERENTIAL YES; Platelet Count 220 K/mm3 (150-450); RBC Distribution Width CV 13.1 % (11.6-14.6); RBC Distribution Width SD 44.4 fl (35.1-43.9); Red Blood Count 4.05 M/mm3 (4.2-5.4); White Blood Count 10.8 K/mm3 (4.4-11.0)
[2020-08-12 07:59] LABS: Differential Indicated SCAN CRITERIA MET
[2020-08-12 08:21] LABS: AST(SGOT) 35 U/L (15-37); Alanine Aminotransfer ALT/SGPT 42 U/L (13-56); Albumin, Serum 3.7 g/dL (3.2-5.0); Alkaline Phosphatase 110 U/L (45-117); Anion Gap 7 (5-15); BUN 12 mg/dL (7-18); BUN/Creat Ratio 11.7 RATIO (10-20); Calcium,Total 8.6 mg/dL (8.5-10.1); Chloride 108 mmol/L (98-107); Creatinine, Serum 1.03 mg/dL (0.55-1.02); EST Glomerular Filtration Rate 59 mL/min (>60); Est Glom Filt Rate - Afr Amer 71 mL/min (>60); Estimated Creatinine Clearance 48.24 ml/min; Globulin 3.7 g/dL (2.2-4.2); Glucose 121 mg/dL (74-106); Lipase 83 U/L (73-393); Potassium 3.6 mmol/L (3.5-5.1); Protein, Total 7.4 g/dL (6.4-8.2); Sodium Level 138 mmol/L (136-145)
[2020-08-12 08:50] LABS: Bacteria 0 SEEN /hpf (None Seen); Mucous, Urine 0 SEEN /hpf (<or=2+); Red Blood Cells-Urine 0 SEEN /hpf (0-5); Squamous Epithelial Cells - UA 0 SEEN /hpf (5-10); White Blood Cells 0 SEEN /hpf (0-5)
[2020-08-12 08:52] LABS: Color, Urine Yellow (Yellow); Glucose, Dipstick Normal (Normal); Ketone-Dipstick Negative (Negative); Leukocyte Esterase-Dipstick Negative /ul (Negative); Nitrite-Dipstick Negative (Negative); Occult Blood-Urine 10 /ul (Negative); Protein-Dipstick Negative (Negative); Urine Bilirubin Dipstick Negative (Negative); Urine Clarity Clear (Clear); Urine Urobilinogen Normal (Normal)
[2020-08-12 09:03] VITALS: PULSE 88; RESP 19; O2SAT 98
[2020-08-12 09:53] VITALS: BP 99/62; PULSE 105; RESP 15; TEMP 37.9; O2SAT 100
== END 2020-08-12 09:56 | disposition home or self-care (01) ==
PROVIDERS: Emergency Provider Emergency Medicine; PCP Family Medicine
DX: T88.1XXA Other complications following immunization, not elsewhere classified, initial encounter (principal); R11.2 Nausea with vomiting, unspecified; M79.10 Myalgia, unspecified site; J45.909 Unspecified asthma, uncomplicated; Z82.49 Family history of ischemic heart disease and other diseases of the circulatory system; Z88.2 Allergy status to sulfonamides; Z83.3 Family history of diabetes mellitus
CPT/HCPCS: 80053; 81001; 83690; 85025; 87426; 99285; A4216

== ENCOUNTER → 2021-01-11 15:24 | Outpatient (CLI) | payer MEDICAID, SELFPAY ==
[2020-11-30 14:36] VITALS: BMI 28.3
--- NOTE | 2021-01-11 15:26 | BI_ITS ---
MAMMOGRAPHY - BILATERAL SCREENING REASON FOR EXAM: Female, 55 years old. Routine annual screening examination. PERTINENT HISTORY: Non-contributory. TECHNIQUE: Digital bilateral breast yessi (3D mammographic acquisition) in the CC and MLO projections. 2-D mediolateral oblique (MLO) and craniocaudad (CC) views of both breasts were obtained. CAD: Full Field Digital Mammography with Computer Added Detection was performed. COMPARISON: Comparison is made with prior study dated 09/14/2018. FINDINGS: Breast Composition: There are scattered areas of fibroglandular density. There are no dominant masses or suspicious calcifications. Stable small benign-appearing bilateral axillary lymph nodes. No other significant abnormalities are identified. There has been no significant change since the prior study. BI/SCRN MAMM (CAD)W/YESSI BILAT IMPRESSION: Stable bilateral screening mammogram. Yearly follow-up mammogram recommended. (A) ASSESSMENT CATEGORY: BIRADS Category 2: Benign. A letter regarding these results will be sent to the patient by the facility within 30 days. Approximately 10% of breast cancers are not detected by mammography. A normal mammogram should not delay biopsy of a clinically suspicious abnormality. [id number] Electronically Signed: Vick Gravse MD at 8:09 EDT , Service support ,
== END ==
PROVIDERS: PCP Family Medicine; Referring Provider Obstetrics & Gynecology; Visit Provider Obstetrics & Gynecology
DX: Z12.31 Encounter for screening mammogram for malignant neoplasm of breast (principal)
CPT/HCPCS: 77063; 77067

== ENCOUNTER → 2021-03-01 16:48 | Outpatient (CLI) | payer MEDICAID, SELFPAY ==
--- NOTE | 2021-03-01 16:50 | RAD_ITS ---
STUDY: X-RAY - RIGHT FOOT CLINICAL: Female, 55 years old. PAIN TECHNIQUE: 3 view(s) of the foot. COMPARISON: None. FINDINGS: Normal talus, calcaneus, and tarsal bones. Normal visualized subtalar, talonavicular, calcaneocuboid, tarsal and tarsometatarsal articulations. Normal metatarsi. Normal metatarsophalangeal joint of the great toe. Normal tibial and fibular sesamoid bones. Normal interphalangeal joint of the great toe. Normal phalanges of the great toe. Normal second through fifth metatarsophalangeal joints. Normal interphalangeal joints and phalanges of the lesser toes. The soft tissue structures are unremarkable. RAD/Foot min 3 Views IMPRESSION: Normal x-ray examination of the foot. Electronically Signed: Elisha Felix MD at 6:49 EDT Tel , Service support ,
--- NOTE | 2021-03-01 16:50 | RAD_ITS ---
STUDY: X-RAY - LEFT FOOT CLINICAL: Female, 55 years old. PAIN TECHNIQUE: 3 view(s) of the foot. COMPARISON: None. FINDINGS: Normal talus, calcaneus, and tarsal bones. Normal visualized subtalar, talonavicular, calcaneocuboid, tarsal and tarsometatarsal articulations. Normal metatarsi. Normal metatarsophalangeal joint of the great toe. Normal tibial and fibular sesamoid bones. Normal interphalangeal joint of the great toe. Normal phalanges of the great toe. Normal second through fifth metatarsophalangeal joints. Normal interphalangeal joints and phalanges of the lesser toes. The soft tissue structures are unremarkable. RAD/Foot min 3 Views IMPRESSION: Normal x-ray examination of the foot. Electronically Signed: Elisha Felix MD at 6:57 EDT Tel , Service support ,
== END ==
PROVIDERS: PCP Family Medicine; Referring Provider Family Medicine; Visit Provider Family Medicine
DX: M79.671 Pain in right foot (principal); M79.672 Pain in left foot
CPT/HCPCS: 73630

== ENCOUNTER → 2021-10-25 | Outpatient (CLI) | payer MEDICAID, SELFPAY ==
[2021-10-25 12:50] LABS: AST(SGOT) 37 U/L (15-37); Alanine Aminotransfer ALT/SGPT 47 U/L (13-56); Albumin, Serum 3.9 g/dL (3.2-5.0); Alkaline Phosphatase 91 U/L (45-117); Anion Gap 8 (5-15); BUN 13 mg/dL (7-18); BUN/Creat Ratio 12.9 RATIO (10-20); Calcium,Total 9.4 mg/dL (8.5-10.1); Chloride 109 mmol/L (98-107); Cholesterol 243 mg/dL (200); Creatinine, Serum 1.01 mg/dL (0.55-1.02); EST Glomerular Filtration Rate 60 mL/min (>60); Est Glom Filt Rate - Afr Amer 73 mL/min (>60); Globulin 4.1 g/dL (2.2-4.2); Glucose 101 mg/dL (74-106); High Density Lipoprotein 58 mg/dL; Potassium 4.2 mmol/L (3.5-5.1); Sodium Level 139 mmol/L (136-145); Triglycerides 213 mg/dL; Very Low Density Lipoprotein 43 mg/dL (5-40)
== END | disposition home or self-care (01) ==
LOC: MFPLAB 09:53
PROVIDERS: PCP Family Medicine; Visit Provider Family Medicine
DX: E78.5 Hyperlipidemia, unspecified (principal)
CPT/HCPCS: 36415; 80053; 80061

== ENCOUNTER → 2022-01-27 | Outpatient (CLI) | payer MEDICAID, SELFPAY ==
--- NOTE | 2022-01-27 16:06 | RAD_ITS ---
STUDY: X-RAY CHEST REASON FOR EXAM: Female, 56 years old. CHEST PAIN TECHNIQUE: PA and lateral views of the chest. COMPARISON: February 21, 2020 chest x-ray FINDINGS: The lungs are clear and expanded. There is no demonstrated pleural abnormality. Normal size heart. Normal mediastinum and brittni. Normal visualized pulmonary arteries. Normal visualized aortic arch and descending thoracic aorta. Normal visualized thoracic spine. Normal visualized ribs, clavicles, and shoulders. There is no demonstrated abnormality of the visualized soft tissue structures of the upper abdomen. RAD/Chest PA and Lateral IMPRESSION: Stable chest no visualized acute focal infiltrate. Electronically Signed: Celina Preciado MD at 6:16 EDT Reading Location ID and State: [facility] / [place] Tel , Service support ,
[2022-01-27 18:02] LABS: Absolute Lymphocyte Count 1.62 X10^3/uL (0.83-4.51); Basophil# 0.06 X10^3/uL; Basophil% 0.8 % (0-1); Eosinophils% 5.2 % (0-5); Hemoglobin 13.5 g/dL (12.0-15.0); Lymphocyte # 1.62 X10^3/ul (0.83-4.51); Lymphocyte % 21.1 % (19-41); Mean Corp Hgb Conc 32.9 g/dL (32-36); Mean Corpuscular Hgb 30.8 pg (27.0-32.0); Mean Corpuscular Volume 93.4 fL (81-99); Mean Platelet Vol. 10.3 fl (6.2-12.0); Monocyte# 0.54 X10^3/uL; NRBC Flagged by Analyzer 0 % (0-5); Neutrophil # 5.02 X10^3/uL (2.7-7.7); Neutrophil % 65.6 % (47-70); Platelet Count 289 K/mm3 (150-450); RBC Distribution Width CV 12.8 % (11.6-14.6); RBC Distribution Width SD 44.2 fl (35.1-43.9); Red Blood Count 4.39 M/mm3 (4.2-5.4); White Blood Count 7.7 K/mm3 (4.4-11.0)
[2022-01-27 18:15] LABS: Anion Gap 8 (5-15); BUN 22 mg/dL (7-18); BUN/Creat Ratio 23.3 RATIO (10-20); Calcium,Total 9.6 mg/dL (8.5-10.1); Chloride 105 mmol/L (98-107); Creatinine, Serum 0.94 mg/dL (0.55-1.02); EST Glomerular Filtration Rate 65 mL/min (>60); Est Glom Filt Rate - Afr Amer 78 mL/min (>60); Glucose 88 mg/dL (74-106); Potassium 3.8 mmol/L (3.5-5.1); Sodium Level 140 mmol/L (136-145)
== END | disposition home or self-care (01) ==
PROVIDERS: PCP Family Medicine; Referring Provider Family Medicine; Visit Provider Family Medicine
DX: R07.89 Other chest pain (principal)
CPT/HCPCS: 36415; 71046; 80048; 85025

== ENCOUNTER → 2022-05-12 | Outpatient (CLI) | payer MEDICAID, SELFPAY ==
[2022-05-12 10:35] LABS: ALB/GLOB Ratio 1.3 RATIO (0.9-2.4); AST(SGOT) 26 U/L (15-37); Alanine Aminotransfer ALT/SGPT 46 U/L (13-56); Albumin, Serum 4.1 g/dL (3.2-5.0); Alkaline Phosphatase 91 U/L (45-117); Anion Gap 4 (5-15); BUN 16 mg/dL (7-18); BUN/Creat Ratio 15.2 RATIO (10-20); Calcium,Total 9.4 mg/dL (8.5-10.1); Chloride 109 mmol/L (98-107); Cholesterol 191 mg/dL (200); Creatinine, Serum 1.05 mg/dL (0.55-1.02); EST Glomerular Filtration Rate 57 mL/min (>60); Est Glom Filt Rate - Afr Amer 69 mL/min (>60); Globulin 3.1 g/dL (2.2-4.2); Glucose 96 mg/dL (74-106); High Density Lipoprotein 61 mg/dL; Potassium 4.3 mmol/L (3.5-5.1); Protein, Total 7.2 g/dL (6.4-8.2); Sodium Level 141 mmol/L (136-145); Triglycerides 175 mg/dL; Very Low Density Lipoprotein 35 mg/dL (5-40)
== END | disposition home or self-care (01) ==
LOC: MFPLAB 08:46
PROVIDERS: PCP Family Medicine; Referring Provider Family Medicine; Visit Provider Family Medicine
DX: E78.5 Hyperlipidemia, unspecified (principal)
CPT/HCPCS: 36415; 80053; 80061

== ENCOUNTER → 2022-07-27 | Outpatient (CLI) | payer MEDICAID, SELFPAY ==
--- NOTE | 2022-07-27 16:12 | MRI_ITS ---
STUDY: MRI CERVICAL SPINE WITHOUT CONTRAST REASON FOR EXAM: Female, 57 years old. Neck pain with numbness down left arm into thumb. TECHNIQUE: Standardized fat and water weighted pulse sequences were obtained in the sagittal and axial planes. COMPARISON: Cervical spine radiographs for 10/08/2020. FINDINGS: Normal foramen magnum and brainstem-cervical cord junction. Normal craniovertebral junction. Normal anterior atlantoaxial articulation. Normal odontoid process. Normal cervical lordosis. Normal vertebral bodies and posterior osseous elements. C2-3: Normal endplates. Normal disc height, signal and morphology. Normal central canal and intervertebral neural foramina. C3-4: Normal endplates. Normal disc height, signal and morphology. Normal central canal and intervertebral neural foramina. C4-5: Normal endplates. Normal disc height, signal and morphology. Normal central canal and intervertebral neural foramina. C5-6: Normal endplates. Normal disc height. Mild left ventral extradural defect due to bone spur. Normal central canal and intervertebral neural foramina. C6-7: Normal endplates. Minimal disc space height narrowing. Normal central canal and intervertebral neural foramina. Small bone spurs in the uncovertebral joints without osteophytic encroachment on the intervertebral neural foramina. C7-T1 and T1-T2: Normal endplates. Normal disc height, signal and morphology. Normal central canal and intervertebral neural foramina. T2-T3, T3-T4, T4-T5 and T5 T6-7: (Sagittal only). Normal endplates. Normal disc height, signal and morphology. Normal central canal and intervertebral neural foramina. Normal cervical cord. Normal included upper thoracic spinal cord, brainstem and cerebellum. Normal visualized soft tissue structures. MRI/Spine Cervical (Routine) IMPRESSION: 1. No MRI evidence of cervical extruded disc fragment, disc protrusion, cervical nerve root displacement or cervical spinal stenosis. 2. Normal cervical spinal cord. Electronically Signed: Natalio Lizarraga MD at 15:59 EST ,
== END | disposition home or self-care (01) ==
LOC: MRI 16:12
PROVIDERS: PCP Family Medicine; Referring Provider Orthopaedic Surgery; Visit Provider Orthopaedic Surgery
DX: M54.12 Radiculopathy, cervical region (principal)
CPT/HCPCS: 72141

== ENCOUNTER → 2023-05-11 | Outpatient (CLI) | payer MEDICAID, SELFPAY ==
--- NOTE | 2023-05-11 19:00 | CT_ITS ---
INDICATION: PULSATILE TINNUTIS,LT EAR EXAMINATION: CTA CAROTIDS AND BRAIN - CTA Head and Neck W/ Contrast Injection (and W/O Contrast Images if performed) TECHNIQUE: Noncontrast CT head followed by Routine CTA of the head and neck was performed with post processing of the angiographic images for volumetric reconstructions. In addition, images were obtained of the [place]. Nascet criteria using the distal ICAs for comparison were used for evaluation of stenoses. 3D reconstructions were reviewed. A radiation dose optimization technique was used for this scan. IV Contrast dosage and agent: 100 mL Isovue-370 CT 830.82mGy. DLP 1425.98 mGy-cm COMPARISON: None. FINDINGS: --Noncontrast CT head: No intracranial hemorrhage, mass, or focal mass effect. Normal shelton-white matter differentiation. No hydrocephalus. No scalp hematoma or gross edema. No acute osseous finding. Mastoid air cells and middle ears are clear. No evidence of high riding jugular bulb. No gross internal auditory canal expansion. Scattered mild to moderate paranasal sinus mucoperiosteal thickening status post bilateral ethmoidectomy, antrostomy and uncinectomy. No acute orbital finding. --NECK: AORTIC ARCH AND BRANCHES: Normal three-vessel aortic arch without dissection or ectasia the study [id number]. RIGHT CCA: No occlusion, significant stenosis or dissection. RIGHT ICA: No occlusion, significant stenosis or dissection. LEFT CCA: No occlusion, significant stenosis or dissection. LEFT ICA: No occlusion, significant stenosis or dissection. RIGHT VERTEBRAL ARTERY: Congenitally diminutive in caliber. No occlusion, significant stenosis or dissection. LEFT VERTEBRAL ARTERY: Congenitally dominant. No occlusion, significant stenosis or dissection. NECK SOFT TISSUES: Unremarkable. LUNG APICES: Clear. BONES: Unremarkable. --HEAD: --Anterior circulation: ICAs: Thin, nearly imperceptible osseous covering of the internal carotid arteries at the middle ear petrous carotid origin. No significant stenosis at the intracranial/visualized segments. ACAs: Mildly tortuous left A1 segment course. No significant stenosis at the visualized segments. ACOM: Long anterior communicating artery coursing anterior posterior from the tortuous left A1 segment to more posterior right A1 segment. No evidence of associated aneurysm. MCAs: No significant stenosis at the visualized segments. --Posterior circulation: PCOMs: Tortuous course extending inferiorly along the clinoid margin. reed dipper: No significant stenosis at the visualized segments. BASILAR ARTERY: No significant stenosis. VERTEBRAL ARTERIES: No significant stenosis at the intradural/visualized segments. No evidence of intracranial aneurysm or vascular malformation. CT/CTA Head AND Neck W/ Contrast IMPRESSION: Thin, nearly imperceptible osseous covering of the carotid arteries at the anterior middle ears. Congenital left vertebral dominance. Other anatomy as above. No evidence of cervical or proximal intracranial vascular occlusion or aneurysmal dilatation. Priors sinus surgical changes with residual diffuse mild to moderate sinus disease. Electronically Signed: Adelfo Bucio MD at 8:32 EST ,
[2023-05-11 19:12] LABS: CREATININE FINGERSTICK 1.6 mg/dL (0.55-1.02)
== END | disposition home or self-care (01) ==
LOC: CT 18:24
PROVIDERS: PCP Family Medicine; Visit Provider Otolaryngology
DX: H93.A2 Pulsatile tinnitus, left ear (principal)
CPT/HCPCS: 70496; 70498; Q9967; A4216

== ENCOUNTER → 2023-07-07 | Outpatient (CLI) | payer MEDICAID, SELFPAY ==
[2023-07-07 15:48] LABS: Absolute Lymphocyte Count 1.62 X10^3/uL (0.83-4.51); Absolute Neutrophil Count 3.8 X10^3/uL (2.0-7.7); Basophil# 0.05 X10^3/uL; Basophil% 0.8 % (0-1); Eosinophil# 0.38 X10^3/uL; Eosinophils% 5.8 % (0-5); Hematocrit 40.3 % (37-47); Hemoglobin 12.7 g/dL (12.0-15.0); Lymphocyte # 1.62 X10^3/ul (0.83-4.51); Lymphocyte % 24.8 % (19-41); Mean Corp Hgb Conc 31.5 g/dL (32-36); Mean Corpuscular Hgb 29.3 pg (27.0-32.0); Mean Corpuscular Volume 93.1 fL (81-99); Mean Platelet Vol. 10.7 fl (6.2-12.0); Monocyte# 0.66 X10^3/uL; Monocyte% 10.1 % (0-10); NRBC Flagged by Analyzer 0 % (0-5); Neutrophil % 58.2 % (47-70); Platelet Count 307 K/mm3 (150-450); RBC Distribution Width CV 12.9 % (11.6-14.6); RBC Distribution Width SD 44.6 fl (35.1-43.9); Red Blood Count 4.33 M/mm3 (4.2-5.4); White Blood Count 6.5 K/mm3 (4.4-11.0)
[2023-07-07 16:14] LABS: Vitamin B12 914 pg/mL (211-911)
== END | disposition home or self-care (01) ==
LOC: MTLAB 13:59
PROVIDERS: PCP Family Medicine; Referring Provider Family Medicine; Visit Provider Family Medicine
DX: E53.8 Deficiency of other specified B group vitamins (principal)
CPT/HCPCS: 36415; 82607; 85025

== ENCOUNTER → 2023-08-24 | Outpatient (CLI) | payer MEDICAID, SELFPAY ==
--- NOTE | 2023-08-24 13:28 | RAD_ITS ---
EXAM: XR CHEST, 2 VIEWS CLINICAL INDICATION: DYSPNEA TECHNIQUE: Frontal and lateral views of the chest. COMPARISON: 01/27/2022 FINDINGS: LUNGS AND PLEURAL SPACES: Unremarkable. No consolidation or edema. No pneumothorax. No effusion. HEART: Unremarkable. Cardiac silhouette not enlarged. MEDIASTINUM: Central airways and mediastinal contour are unremarkable. BONES/JOINTS: Unremarkable. No acute fracture. SOFT TISSUES: Unremarkable. RAD/Chest PA and Lateral IMPRESSION: No radiographic evidence of acute cardiopulmonary disease. Electronically Signed: Shane Alcaraz MD at 19:24 EDT ,
== END | disposition home or self-care (01) ==
LOC: MTRAD 13:27
PROVIDERS: PCP Family Medicine; Referring Provider Specialist; Visit Provider Specialist
DX: R06.00 Dyspnea, unspecified (principal)
CPT/HCPCS: 71046

== ENCOUNTER → 2023-12-21 | Outpatient (CLI) | payer MEDICAID, SELFPAY ==
--- NOTE | 2023-12-21 12:42 | MRI_ITS ---
EXAM: MR VENOGRAPHY HEAD WITHOUT INTRAVENOUS CONTRAST CLINICAL INDICATION: left pulsatile tinnitus TECHNIQUE: Magnetic resonance venography images of the head without intravenous contrast. COMPARISON: MRI brain on the same date and CTA head, 05/11/2023. FINDINGS: SUPERIOR SAGITTAL SINUS: No significant abnormality. Patent. STRAIGHT SINUS: No significant abnormality. Patent. TRANSVERSE SINUSES: No significant abnormality. Patent. SIGMOID SINUSES: No significant abnormality. Patent. INTERNAL JUGULAR VEINS: Normal as visualized. INTERNAL CEREBRAL AND CORTICAL VEINS: Normal as visualized. MRI/MRV Head Without Contrast IMPRESSION: Normal head/brain MRV. Electronically Signed: Benson Pena DO at 23:38 EDT ,
--- NOTE | 2023-12-21 12:42 | MRI_ITS ---
INDICATION: left pulsatile tinnitus -- with attention to the IACs EXAMINATION: MRI - MR Brain WO/W Contrast TECHNIQUE: Multiplanar and multisequence MR images of the brain were obtained without and with gadolinium. IV Contrast Dosage and Agent: 15 cc Clariscan COMPARISON: None. FINDINGS: BRAIN PARENCHYMA: No MRI evidence of hemorrhage. No evidence of acute infarct. No intracranial mass or mass effect. There is preservation of the shelton/white matter interface. Normal sella turcica, pituitary gland, infundibular stalk, optic chiasm and hypothalamus. Posterior fossa structures are unremarkable. INTERNAL AUDITORY CANALS: The internal auditory canals are well visualized and patent. No mass identified. CSF SPACES: Appropriate for age. No hydrocephalus. Basal cisterns are patent. VASCULAR SYSTEM: Normal flow voids in the major intracranial circulation. CALVARIUM, SKULL BASE, PARANASAL SINUSES AND MASTOID AIR CELLS: Mucosal thickening and fluid noted within the paranasal sinuses. Mastoid sinuses are clear. ORBITS: Both globes, extraocular muscles, optic nerves and retrobulbar fat appear unremarkable. MRI/Brain W/WO Contrast IMPRESSION: No acute intracranial abnormality. Normal internal auditory canals. Paranasal sinusitis. Electronically Signed: Hussain Bowers MD at 16:23 EDT ,
== END | disposition home or self-care (01) ==
PROVIDERS: PCP Family Medicine; Referring Provider Psychiatry & Neurology Neurology; Visit Provider Psychiatry & Neurology Neurology
DX: H93.12 Tinnitus, left ear (principal)
CPT/HCPCS: 70544; 70553; A9575

== ENCOUNTER → 2023-12-28 | Outpatient (CLI) | payer MEDICAID, SELFPAY ==
[2023-12-28 10:10] LABS: Hematocrit 41.4 % (37-47); Hemoglobin 13.4 g/dL (12.0-15.0); Mean Corp Hgb Conc 32.4 g/dL (32-36); Mean Corpuscular Hgb 29.6 pg (27.0-32.0); Mean Corpuscular Volume 91.6 fL (81-99); Mean Platelet Vol. 10.6 fl (6.2-12.0); Platelet Count 238 K/mm3 (150-450); RBC Distribution Width CV 12.7 % (11.6-14.6); Red Blood Count 4.52 M/mm3 (4.2-5.4); White Blood Count 6.2 K/mm3 (4.4-11.0)
[2023-12-28 10:35] LABS: AST(SGOT) 19 U/L (15-37); Alanine Aminotransfer ALT/SGPT 34 U/L (13-56); Albumin, Serum 3.8 g/dL (3.2-5.0); Alkaline Phosphatase 104 U/L (45-117); Anion Gap 7 (5-15); BUN 12 mg/dL (7-18); BUN/Creat Ratio 11.9 RATIO (10-20); Calcium,Total 9.1 mg/dL (8.5-10.1); Chloride 111 mmol/L (98-107); Creatinine, Serum 1.01 mg/dL (0.55-1.02); EST Glomerular Filtration Rate 60 mL/min (>60); Est Glom Filt Rate - Afr Amer 72 mL/min (>60); Globulin 3.8 g/dL (2.2-4.2); Glucose 105 mg/dL (74-106); Potassium 4.1 mmol/L (3.5-5.1); Protein, Total 7.6 g/dL (6.4-8.2); Sodium Level 141 mmol/L (136-145); Thyroid Stim Hormone (TSH) 2.92 uIU/mL (0.358-3.74)
== END | disposition home or self-care (01) ==
LOC: MTLAB 08:59
PROVIDERS: PCP Family Medicine; Referring Provider Psychiatry & Neurology Neurology; Visit Provider Psychiatry & Neurology Neurology
DX: H93.12 Tinnitus, left ear (principal)
CPT/HCPCS: 36415; 80053; 84443; 85027

== ENCOUNTER 2024-06-21 10:12 | Emergency (ER) | payer MEDICAID, SELFPAY ==
[2024-06-21] VITALS (7 sets, daily range): BP systolic 108–128; BP diastolic 52–76; PULSE 65–82; RESP 16–19; TEMP 36.6–36.7; O2SAT 93–100; BMI 27.8
--- NOTE | 2024-06-21 10:27 | EKG12_ITS ---
Test Reason : CP Blood Pressure : */* mmHG Vent. Rate : 81 BPM Atrial Rate : 81 BPM P-R Int : 118 ms QRS Dur : 82 ms QT Int : 378 ms P-R-T Axes : 55 32 50 degrees QTcB Int : 439 ms Normal sinus rhythm with sinus arrhythmia Normal ECG Confirmed by TAMIR FRENCH, JUTSIN ([id number]), field map editor FELIPA URRUTIA ([id number]) on 06/24/2024 6:02:12 AM Referred By: Confirmed By: JUSTIN GARNETT MD
[2024-06-21 10:40] LABS: Basophil# 0.03 X10^3/uL; Basophil% 0.6 % (0-1); Eosinophil# 0.44 X10^3/uL; Eosinophils% 8.2 % (0-5); Hematocrit 44.5 % (37-47); Hemoglobin 14.3 g/dL (12.0-15.0); Lymphocyte % 26.1 % (19-41); Mean Corp Hgb Conc 32.1 g/dL (32-36); Mean Corpuscular Hgb 29.2 pg (27.0-32.0); Mean Corpuscular Volume 90.8 fL (81-99); Mean Platelet Vol. 10.1 fl (6.2-12.0); Monocyte# 0.47 X10^3/uL; Monocyte% 8.8 % (0-10); NRBC Flagged by Analyzer 0 % (0-5); Neutrophil # 3.01 X10^3/uL (2.7-7.7); Neutrophil % 55.9 % (47-70); Platelet Count 223 K/mm3 (150-450); RBC Distribution Width CV 12.7 % (11.6-14.6); RBC Distribution Width SD 41.9 fl (35.1-43.9); White Blood Count 5.4 K/mm3 (4.4-11.0)
--- NOTE | 2024-06-21 10:45 | RAD_ITS ---
PROCEDURE: CHEST PA AND LATERAL REASON FOR EXAM: Chest pain. TECHNIQUE: Frontal and lateral views of the chest. COMPARISON: Chest x-ray of 08/24/2023. FINDINGS: The heart size is normal. The mediastinal contour is unremarkable. The lungs are clear. No interval osseous change is noted. RAD/Chest PA and Lateral IMPRESSION: No evidence of acute cardiopulmonary disease. Reading Location: [id number]
[2024-06-21 11:09] LABS: AST(SGOT) 43 U/L (15-37); Alanine Aminotransfer ALT/SGPT 35 U/L (13-56); Albumin, Serum 4.2 g/dL (3.2-5.0); Alkaline Phosphatase 111 U/L (45-117); Anion Gap 7 (5-15); BUN 18 mg/dL (7-18); BUN/Creat Ratio 16.1 RATIO (10-20); Calcium,Total 9.6 mg/dL (8.5-10.1); Chloride 107 mmol/L (98-107); Creatinine, Serum 1.12 mg/dL (0.55-1.02); EST Glomerular Filtration Rate 53 mL/min (>60); Est Glom Filt Rate - Afr Amer 64 mL/min (>60); Globulin 4.2 g/dL (2.2-4.2); Glucose 109 mg/dL (74-106); Potassium 4.5 mmol/L (3.5-5.1); Protein, Total 8.4 g/dL (6.4-8.2); Sodium Level 136 mmol/L (136-145); Troponin-I HS (w/2H Reflex) < 3 pg/mL (3.0-54.0)
[2024-06-21] MEDS: Acetaminophen 325 MG Tablet 650 MG PO (11:13)
--- NOTE | 2024-06-21 11:35 | ED.VIS.CHEST ---
HPI History of Present Illness Chief Complaint: Chest Pain Informant: patient Narrative Narrative: Patient is a 58-year-old female with history of asthma presenting with chest pain. Patient states she felt a heaviness or pressure in her chest that was more on the top of her chest into the left that woke her up from sleep this morning. She does when she woke up she was sweating which is quite abnormal for her. [id number] at the bedside notes that she seems more short of breath today. Patient denies any swelling of her legs. As a history of DVT or PE. Denies any recent cough or illnesses. Does have some pain rating to her left arm. States that she has been feeling more sinusy over the past few days but attributes that to weather changes. No fevers reported. No other complaints or concerns reported at this time. [facility] Medical History Abdominal pain Abnormal nuclear stress test Acid reflux Angina pectoris Arthritis Asthma Hives HLD (hyperlipidemia) Nausea Seasonal allergies Sinus disease SOB (shortness of breath) Home Medications ?Medication ?Instructions ?Recorded ?Last Taken ?Type albuterol sulfate 2.5 mg/3 mL 2.5 mg inhalation Q4H PRN PRN Cough 01/19/14 01/30/18 09:00 History (0.083 %) solution for nebulization 2.5 MG fluticasone propionate 220 2 puff inhalation BID 01/19/14 03/14/18 06:00 History mcg/actuation HFA aerosol inhaler montelukast 10 mg tablet 10 mg PO DAILY 04/28/16 Unknown History budesonide 0.5 mg/2 mL suspension 1 applicatio NASAL BID 08/10/16 01/30/18 09:00 History for nebulization 1 APPLICATIO multivitamin 1 ea PO DAILY SUPPLEMENT 03/07/18 Unknown History levocetirizine 5 mg tablet 5 mg PO BID hives 11/30/20 Unknown History rosuvastatin 5 mg tablet 5 mg PO DAILY 12/04/23 Unknown History Allergy/AdvReac Type Severity Reaction Status Date / Time aspirin Allergy Severe Anaphylaxis Verified 06/21/24 10:14 Sulfa (Sulfonamide Allergy Severe Anaphylaxis Verified 06/21/24 10:14 Antibiotics) dexamethasone AdvReac Severe Hives Verified 06/21/24 10:14 Family History Mother Heart disease Hypertension Cancer Skin Brother Diabetes Surgical History History of History of total vaginal hysterectomy (TVH) Hx of cholecystectomy Hx of eye surgery Hx of sinus surgery Social History household members: spouse number of children: 2 current occupational status: employed current occupation: owns [employer] history of recent travel: No Smoking Status: Never smoker second hand exposure: No alcohol intake: never substance use type: does not use caffeine: Yes what type of physical activity do you participate in: walking frequency: daily seatbelt use: always do you feel safe at home: Yes additional social history: - [employer] ED Constitutional Constitutional ED: Denies chills or fever(s) Cardiovascular Cardiovascular: Reports chest pain Respiratory/Chest Respiratory/Chest: Denies cough or dyspnea Gastrointestinal Gastrointestinal: Denies nausea or vomiting Musculoskeletal Musculoskeletal: Denies back pain or myalgias Integumentary Denies rash Neurologic Neurologic: Denies headache(s) Hematologic/Lymphatic Hematologic/Lymphatic: Denies easy bleeding or easy bruising EXAM Physical Exam Const Vital Signs: 06/21/24 10:14 06/21/24 10:50 06/21/24 11:10 Temperature 97.9 F Temperature Source Oral Pulse Rate 82 71 Respiratory Rate 18 16 Blood Pressure 115/76 108/64 Blood Pressure Mean 89 78 Pulse Ox 100 99 Oxygen Delivery Method Room Air Room Air Room Air 06/21/24 12:00 06/21/24 13:00 06/21/24 14:00 Temperature Temperature Source Pulse Rate 72 76 71 Respiratory Rate 19 H 16 16 Blood Pressure 115/65 117/52 L 113/56 L Blood Pressure Mean 81 73 75 Pulse Ox 100 97 98 Oxygen Delivery Method Room Air Room Air 06/21/24 15:14 Temperature Temperature Source Pulse Rate 65 Respiratory Rate 18 Blood Pressure 115/62 Blood Pressure Mean 79 Pulse Ox 93 Oxygen Delivery Method Room Air Positive well nourished and well developed General Appearance ED: well developed and NAD HEENT Reports moist mucous membranes Eyes PERRL Neck supple and no JVD Chest Wall inspection of chest normal Chest Narrative: No chest wall crepitus. No rash noted on the chest wall. Mild tenderness palpation of the left anterior chest wall over the pectoralis area Resp normal respiratory effort and clear to auscultation bilaterally Cardio regular rate and regular rhythm GI normal to inspection, nondistended, normoactive bowel sounds and soft to palpation Extremity normal to inspection Neuro oriented x3 Sensorium / Orientation: awake and alert Motor Exam: Negative for general weakness Psych mental status grossly normal Skin no rashes or lesions noted and no wounds Heart Score History: Moderately Suspicious ECG: Normal Age: >45 - <65 years Risk Factors: 1 or 2 Risk Factors Troponin: </= Normal Limit Score: 3 MDM MDM MDM Narrative Medical decision making narrative: Patient evaluated for left-sided chest pressure discomfort rating down her left arm that woke her from sleep this morning. Upon arrival vital signs are normal. EKG does not show any acute ischemic changes. Patient cannot have aspirin secondary to history of anaphylaxis so she is not given any. Is given dose of Tylenol for pain. EKG shows normal sinus rhythm with no ischemic changes. Differential also includes pulmonary emboli however patient is low risk by Wells criteria. Will obtain D-dimer. This is negative at 0.28. I do not think she requires a CTA. CBC, delta high sensitive troponin and CMP are unremarkable. Creatinine mildly elevated at 1.12 however this appears to be her baseline. Chest x-ray viewed by myself as well as radiology does not show any acute process. At this time discussed with patient that the cause of her symptoms is not clear however she will be discharged home as at this time I think she stable for outpatient follow-up. Counseled that I would recommend for outpatient follow-up with PCP for further cardiac evaluation and possibly stress testing. She verbalized agreement or stands plan. Discussed that she develops a rash over her left chest wall of the next few days suspect your pain is from shingles. Patient does recall that earlier in the week she was having some left shoulder pain and had her massage it. That had since resolved. Lab Data Attestation: I reviewed the patient's lab results. Labs: Laboratory Results - last 24 hr 06/21/24 06/21/24 06/21/24 10:32 11:37 12:33 WBC 5.4 RBC 4.90 Hgb 14.3 Hct 44.5 MCV 90.8 MCH 29.2 MCHC 32.1 RDW Std Deviation 41.9 RDW Coeff of Magi 12.7 Plt Count 223 MPV 10.1 Immature Gran % (Auto) 0.400 Neut % (Auto) 55.9 Lymph % (Auto) 26.1 [place] % (Auto) 8.8 Eos % (Auto) 8.2 H Baso % (Auto) 0.6 Absolute Neuts (auto) 3.0 Absolute Lymphs (auto) 1.40 Nucleated RBC % 0 D-Dimer Quant (PE/DVT) 0.28 Sodium 136 Potassium 4.5 Chloride 107 Carbon Dioxide 23.0 Anion Gap 7 BUN 18 Creatinine 1.12 H Est GFR (MDRD) Af Amer 64 Est GFR (MDRD) Non-Af 53 L BUN/Creatinine Ratio 16.1 Glucose 109 H Calcium 9.6 Total Bilirubin 0.50 AST 43 H ALT 35 Alkaline Phosphatase 111 Troponin I High Sens < 3 L 5 Total Protein 8.4 H Albumin 4.2 Globulin 4.2 Albumin/Globulin Ratio 1.0 Radiography Chest X-Ray - ED: 2 View, Read by ED Physician, Read by Radiologist and No Acute Disease Diagnostic Testing: Clinical Impression(s) from Imaging Studies Chest X-Ray 06/21/24 10:45 IMPRESSION: No evidence of acute cardiopulmonary disease. Reading Location: [address] Rhythm Strip Rhythm Strip: Sinus Rhythm Rate: 81 Ectopy: None EKG Initial EKG: Attestation: I personally reviewed and interpreted this EKG as follows: Interpretation: Sinus Rhythm Comments: Normal sinus rhythm with sinus arrhythmia rate of 81 bpm Normal axis Normal intervals Normal ST segments Discharge Plan Triage Chief Complaint: Chest Pain ED Provider: Kellee Perla Dx/Rx/DC Orders Clinical Impression: Chest pain Instructions: ED Chest Pain, Uncertain Cause Prescriptions: No Action rosuvastatin 5 mg tablet 5 mg PO DAILY albuterol sulfate 2.5 MG/3 ML solution for nebulization 2.5 mg INHALATION Q4H PRN PRN (Reason: Cough) Patient Comments: breathing fluticasone propionate 1 INHALER inhaler 2 puff INHALATION BID Patient Comments: breathing montelukast 10 MG tablet 10 mg PO DAILY budesonide 0.5 MG/2 ML suspension for nebulization 1 applicatio NASAL BID Patient Comments: Use 1 ampule VIA NEBULIZER twice daily as directed levocetirizine 5 mg tablet 5 mg PO BID multivitamin 1 EACH tablet 1 ea PO DAILY Primary Care Provider: Reji Hurd Referrals: Reji Hurd MD [Primary Care Provider] - Activity Restrictions/Additional Instructions: You may use Lidoderm patches and alternate with Tylenol for pain. If you develop a rash I suspect this pain is from shingles. Exact cause is not clear and possibilities include muscle skeletal pain as well as pleurisy which is inflammation around the lining of the lungs. Your workup today however was very reassuring and at this time I think it safe you to be discharged home and follow-up outpatient with your primary care doctor. If your symptoms progress please return to the emergency room. Print Language: Azerbaijani Disposition Disposition: Home, Self Care
[2024-06-21 12:02] LABS: D-Dimer Quantitative (DVT/PE) 0.28 FEU/ug/m (0.27-0.49)
[2024-06-21 12:36] LABS: Reflex Troponin-HS? (from REC) Y
[2024-06-21 14:18] LABS: Troponin-I HS 5 pg/mL (3.0-54.0)
== END 2024-06-21 16:01 | disposition home or self-care (01) ==
PROVIDERS: Emergency Provider Emergency Medicine; PCP Family Medicine; Visit Provider Emergency Medicine
DX: R07.9 Chest pain, unspecified (principal); M79.602 Pain in left arm; M25.512 Pain in left shoulder; Z90.710 Acquired absence of both cervix and uterus; E78.5 Hyperlipidemia, unspecified; Z90.49 Acquired absence of other specified parts of digestive tract; J45.909 Unspecified asthma, uncomplicated
CPT/HCPCS: 71046; 80053; 84484; 85025; 85379; 87631; 93005; 99283; A4216

== ENCOUNTER → 2025-02-28 | Outpatient (CLI) | payer MEDICAID, SELFPAY ==
[2025-02-28 18:53] LABS: Anion Gap 13 (5-15); BUN 12 mg/dL (4-19); BUN/Creat Ratio 13.3 RATIO (10-20); Calcium,Total 9.5 mg/dL (7.6-11.0); Carbon Dioxide 22.5 mmol/L (21.0-32.0); Chloride 104 mmol/L (98-108); Glucose 70 mg/dL (70-99); Magnesium 2.4 mg/dL (1.5-2.2); Potassium 4.4 mmol/L (3.3-5.1)
[2025-02-28 18:55] LABS: Hematocrit 40.0 % (37-47); Hemoglobin 13.6 g/dL (12.0-15.0); Immature Granulocytes Count 0.020 X10^3/uL (0.0-0.0); Mean Corp Hgb Conc 34.0 g/dL (32-36); Mean Corpuscular Volume 89.7 fL (81-99); Mean Platelet Vol. 10.7 fl (6.2-12.0); NRBC Flagged by Analyzer 0 % (0-5); Platelet Count 313 K/mm3 (150-450); RBC Distribution Width CV 12.9 % (11.6-14.6); RBC Distribution Width SD 42.4 fl (35.1-43.9); Red Blood Count 4.46 M/mm3 (4.2-5.4); White Blood Count 8.5 K/mm3 (4.4-11.0)
== END | disposition home or self-care (01) ==
PROVIDERS: PCP Family Medicine; Visit Provider Family Medicine
DX: M79.641 Pain in right hand (principal); M79.642 Pain in left hand
CPT/HCPCS: 36415; 80048; 83735; 85025